=== PATIENT | male | born 1990 | race Two or more races ===

== ENCOUNTER → 2016-09-15 | Emergency (ER) | payer SELFPAY ==
[~2016-09-15] MED LIST: ACETAMINOPHEN 1000 MG/100 ML VIAL (NON FORMULARY) IVPB ONE; ACETAMINOPHEN INJECTION 100 ML IVPB ONE; FAMOTIDINE 20 MG/50 ML IVPB 50 ML IVPB ONE; ONDANSETRON 4 MG/2 ML VIAL IVPB ONE; ONDANSETRON 4 MG/2 ML VIAL ONE; PANTOPRAZOLE 40 MG TABLET (FP) PO ONE; SODIUM CHLORIDE 1,000 ML IV STA
[2016-09-15 18:04] VITALS: BP 110/56; PULSE 92; TEMP 98.3; BMI 23.5
--- NOTE | 2016-09-15 18:06 | PDOC ---
Rapid Medical Evaluation Chief Complaint: Chest Pain Time Seen by Provider: 09/15/16 17:58 Medical Evaluation: Allergies Allergy/AdvReac Type Severity Reaction Status Date / Time No Known Allergies Allergy Verified 09/14/16 15:28 09/15/16 18:03 RME Note: I have performed a brief, in-person evaluation of this patient . This patient presents with CC: abd pain x 1week; with SOB today; seen here yesterday for CP; had low K, and high glucose last week Pertinent PE findings are: lungs clear; VSS I have ordered: labs, EKG The patient will proceed to ED for further evaluation. JR
[2016-09-15 18:32] LABS: BASOPHIL 0.3 % (0-2.0); EOSINOPHIL 1.2 % (0-4.5); MCH 28.3 pg (25.7-33.7); MCHC 33.5 g/dl (32.0-35.9); MEAN CELL VOLUME 84.5 fl (80-96); MEAN PLT VOLUME 7.7 fl (7.5-11.1); NEUTROPHILS 64.9 % (42.8-82.8); PLATELET COUNT 354 K/MM3 (134-434); RDW 13.5 % (11.9-15.9); WHITE BLOOD COUNT 7.3 K/mm3 (4.0-10.0)
[2016-09-15 19:02] LABS: INR 1.13 (0.82-1.09); PROTHROMBIN TIME (PATIENT) 12.5 SEC (9.98-11.88)
[2016-09-15 19:04] LABS: ACTIVATED PTT 33.5 SECONDS (26.9-34.4)
[2016-09-15 19:11] LABS: ALBUMIN 4.3 g/dl (3.4-5.0); ANION GAP 9 (8-16); BILIRUBIN,TOTAL 0.7 mg/dL (0.2-1.0); CALCIUM 9.5 mg/dL (8.5-10.1); CO2 29 mmol/L (21-32); GLUCOSE,RANDOM 94 mg/dL (74-106); SGOT/AST 17 U/L (15-37); SGPT/ALT 28 U/L (12-78); TOT PROT 8.6 g/dl (6.4-8.2)
[2016-09-15 19:13] LABS: ALK PHOS 62 U/L (45-117); TROPONIN I < 0.02 ng/ml (0.00-0.05)
--- NOTE | 2016-09-15 19:39 | PDOC ---
History of Present Illness - History of Present Illness Initial Comments: 09/15/16 19:53 Patient is a 25 year old male with no significant medical hx who is presenting to the ED with one week of chest pain, nausea, abdominal cramping, weakness, and loss of appetite. The patient was seen in the ED yesterday for the same symptoms. He complains of intermittent chest pain that is described as a swelling that makes it difficult for him to breathe. The patient localizes his discomfort to his upper chest without any radiation up his neck or down his arms. Patient notes his chest pain is aggravated with strenuous activity. The patient also complains of high activity of his stomach, with pressure sensation and intermittent cramping. The patient reports associated nausea and loss of appetite but denies any vomiting or diarrhea. The patient also endorses some weight loss. Yesterday the patient received a chest x-ray (09/15/16 07) that read: Impression: No evidence of active pulmonary disease. (Reported By: Gelacio Bailey MD). Yesterday, the patient reported that he was seen at [facility] ER one week ago after drinking a 5 hour energy shot, Gatorade, and began hyperventilating. The patient was found to be hypokalemic and was treated with an IV and potassium. <Dana Oliveira - Last Filed: 09/15/16 23:52> - General History Source: Patient, Old Records Exam Limitations: No Limitations <Richard Catherine - Last Filed: 09/16/16 01:03> - General Chief Complaint: Pain Stated Complaint: Abd pain, chest tightness Time Seen by Provider: 09/15/16 17:58 Past History <Dana Oliveira - Last Filed: 09/15/16 23:52> - Past Medical History Other medical history: denies - Psycho/Social/Smoking Cessation Hx Anxiety: No Suicidal Ideation: No Smoking History: Former smoker Have you smoked in the past 12 months: No Number of Cigarettes Smoked Daily: 4 If you are a former smoker, when did you quit?: 08/2016 Information on smoking cessation initiated: No Hx Alcohol Use: No Drug/Substance Use Hx: No Substance Use Type: None <Richard Catherine - Last Filed: 09/16/16 01:03> - Past Medical History Allergies/Adverse Reactions: Allergies Allergy/AdvReac Type Severity Reaction Status Date / Time No Known Allergies Allergy Verified 09/15/16 18:04 Home Medications: Ambulatory Orders Ranitidine [Zantac -] 150 mg PO BID #60 tablet 09/14/16 Pantoprazole Sodium [Protonix] 40 mg PO DAILY #30 tablet. 09/15/16 Ranitidine HCl [Zantac] 150 mg PO BID PRN #20 tablet 09/15/16 Review of Systems - Review of Systems Comments:: 09/15/16 19:55 GENERAL/CONSTITUTIONAL: Loss of appetite, generalized weakness, weight loss. No fever or chills. HEAD, EYES, EARS, NOSE AND THROAT: No change in vision. No ear pain or discharge. No sore throat. CARDIOVASCULAR: Chest pain with difficulty breathing. RESPIRATORY: No cough, wheezing, or hemoptysis. GASTROINTESTINAL: Nausea, abdominal discomfort, cramping. No vomiting, diarrhea or constipation. GENITOURINARY: No dysuria, frequency, or change in urination. MUSCULOSKELETAL: No joint or muscle swelling or pain. No neck or back pain. SKIN: No rash NEUROLOGIC: No headache, vertigo, loss of consciousness, or change in strength/ sensation. <Dana Oliveira - Last Filed: 09/15/16 23:52> *Physical Exam - Vital Signs Last Vital Signs Temp Pulse Resp BP Pulse Ox 98.3 F 92 H 18 110/56 99 09/15/16 18:01 09/15/16 18:01 09/15/16 18:01 09/15/16 18:01 09/15/16 18:01 - Physical Exam Comments: 09/15/16 19:57 GENERAL: Awake, alert, and fully oriented, in no acute distress HEAD: No signs of trauma EYES: PERRLA, EOMI, sclera anicteric, conjunctiva clear ENT: Auricles normal inspection, hearing grossly normal, nares patent, oropharynx clear without exudates. Moist mucosa NECK: Normal ROM, supple, no lymphadenopathy, JVD, or masses LUNGS: Breath sounds equal, clear to auscultation bilaterally. No wheezes, and no crackles HEART: Regular rate and rhythm, normal S1 and S2, no murmurs, rubs or gallops ABDOMEN: Soft, tenderness to the epigastric, periumbilical, LLQ, and LUQ. Normoactive bowel sounds. No guarding, no rebound. No masses EXTREMITIES: Normal range of motion, no edema. No clubbing or cyanosis. No cords, erythema, or tenderness NEUROLOGICAL: Cranial nerves II through XII grossly intact. Normal speech, normal gait SKIN: Warm, Dry, normal turgor, no rashes or lesions noted. ENDOCRINE: No increased thirst. No abnormal weight change. HEMATOLOGIC/LYMPHATIC: No anemia, easy bleeding, or history of blood clots. ALLERGIC/IMMUNOLOGIC: No hives or skin allergy. <Dana Oliveira - Last Filed: 09/15/16 23:52> - Vital Signs Last Vital Signs Temp Pulse Resp BP Pulse Ox 98.3 F 92 H 18 110/56 99 09/15/16 18:01 09/15/16 18:01 09/15/16 18:01 09/15/16 18:01 09/15/16 18:01 <Richard Catherine - Last Filed: 09/16/16 01:03> Heart Score/ECG Review #1 ECG reviewed & interpreted by me at: 19:05 09/15/16 19:47 NSR 72, T wave flat III, concave upward ZOILA (J point) V2-V3, no STD, QTC 420 msec, normal axis. <Richard Catherine - Last Filed: 09/16/16 01:03> ED Treatment Course - LABORATORY CBC & Chemistry Diagram: 09/15/16 18:11 09/15/16 18:11 - ADDITIONAL ORDERS Additional order review: Laboratory Results 09/15/16 09/15/16 18:11 18:11 Sodium 135 L Potassium 3.8 Chloride 97 L Carbon Dioxide 29 Anion Gap 9 BUN 12 Creatinine 1.0 Creat Clearance w eGFR > 60 Random Glucose 94 Calcium 9.5 Total Bilirubin 0.7 AST 17 D ALT 28 Alkaline Phosphatase 62 Creatine Kinase 247 D CK-MB (CK-2) < 1.000 CK-MB (CK-2) Rel Index Cancelled Troponin I < 0.02 Total Protein 8.6 H Albumin 4.3 09/15/16 18:11 RBC 5.20 MCV 84.5 MCHC 33.5 RDW 13.5 MPV 7.7 Neutrophils % 64.9 Lymphocytes % 21.6 D Monocytes % 12.0 H Eosinophils % 1.2 D Basophils % 0.3 - RADIOLOGY Radiograph Interpretation: 09/15/16 23:[address] Impression: There is no CT evidence of pulmonary embolism. No acute pathology is identified. A solitary nonspecific 0.4 cm left lower lobe pulmonary nodule is noted. Reported By: Soren Toney MD Abdomen/Pelvis CT Impression: No CT findings of acute pathology are noted as discussed. A nonspecific 3 to 4 mm noncalcified nodule is seen within the posterior basal segment of the left lower lobe (as also visualized on chest CT performed on the same date). Reported By: Soren Toney MD <Dana Oliveira - Last Filed: 09/15/16 23:52> - LABORATORY CBC & Chemistry Diagram: 09/15/16 18:11 09/15/16 18:11 - ADDITIONAL ORDERS Additional order review: Laboratory Results 09/15/16 18:11 Sodium 135 L Potassium 3.8 Chloride 97 L Carbon Dioxide 29 Anion Gap 9 BUN 12 Creatinine 1.0 Creat Clearance w eGFR > 60 Random Glucose 94 Calcium 9.5 Total Bilirubin 0.7 AST 17 D ALT 28 Alkaline Phosphatase 62 Creatine Kinase 247 D CK-MB (CK-2) < 1.000 Troponin I < 0.02 Total Protein 8.6 H Albumin 4.3 09/15/16 18:11 RBC 5.20 MCV 84.5 MCHC 33.5 RDW 13.5 MPV 7.7 Neutrophils % 64.9 Lymphocytes % 21.6 D Monocytes % 12.0 H Eosinophils % 1.2 D Basophils % 0.3 - RADIOLOGY Radiology Studies Ordered: Category Date Time Status ABDOMEN & PELVIS CT WITH CONTR [CT] Stat CT Scan 09/15/16 18:55 Ordered CHEST CTA [CT] Stat CT Scan 09/15/16 18:55 Ordered <Richard Catherine - Last Filed: 09/16/16 01:03> Medical Decision Making - Medical Decision Making 09/15/16 19:38 A portion of this note was documented by scribe services under my direction. I have reviewed the details of the note, within reason, and agree with the documentation with the following case summary and management plan written by me. Patient treated in the ED. Nursing notes are reviewed and incorporated into the medical decision-making. Vital signs reviewed. Peripheral IV access obtained by the nurse, laboratory studies are drawn and sent, reviewed and interpreted by myself. Vital Signs Temp Pulse Resp BP Pulse Ox 98.3 F 92 H 18 110/56 99 09/15/16 18:01 09/15/16 18:01 09/15/16 18:01 09/15/16 18:01 09/15/16 18:01 25 year old male with no past medical history presents with persistent chest and abdominal pain for the last week. The patient reports that he typically feels well and usually does not go to doctors. He was recently seen a month of your emergency room as well as yesterday here in the emergency department for similar symptoms. He had a chest x-ray and blood work and EKG performed and was discharged. Today, he continues to complain of weight loss, general malaise, intermittent chest tightness not always exertional, left-sided abdominal discomfort. Denies fevers or chills. Denies shortness of breath. States that he' s been feeling potentially drained and unwell. The patient's symptoms are atypical. Unclear what the etiology is. The patient is having left sided abdominal pain as well. Given that this is unclear, will perform CT abdomen and pelvis. Will also obtain an ECG, trop, and a CTA to r/o PE. Labs. Reassess. 09/15/16 23:38 CBC, BMP 09/15/16 18:11 09/15/16 18:11 CMP Sodium 135 mmol/L (136-145) L 09/15/16 18:11 Potassium 3.8 mmol/L (3.5-5.1) 09/15/16 18:11 Chloride 97 mmol/L (98-107) L 09/15/16 18:11 Carbon Dioxide 29 mmol/L (21-32) 09/15/16 18:11 Anion Gap 9 (8-16) 09/15/16 18:11 BUN 12 mg/dL (7-18) 09/15/16 18:11 Creatinine 1.0 mg/dL (0.7-1.3) 09/15/16 18:11 Creat Clearance w eGFR > 60 (>60) 09/15/16 18:11 Random Glucose 94 mg/dL (74-106) 09/15/16 18:11 Calcium 9.5 mg/dL (8.5-10.1) 09/15/16 18:11 Total Bilirubin 0.7 mg/dL (0.2-1.0) 09/15/16 18:11 AST 17 U/L (15-37) D 09/15/16 18:11 ALT 28 U/L (12-78) 09/15/16 18:11 Alkaline Phosphatase 62 U/L (45-117) 09/15/16 18:11 Creatine Kinase 247 IU/L (39-308) D 09/15/16 18:11 CK-MB (CK-2) < 1.000 ng/ml (0.5-3.6) 09/15/16 18:11 CK-MB (CK-2) Rel Index Cancelled 09/15/16 18:11 Troponin I < 0.02 ng/ml (0.00-0.05) 09/15/16 18:11 Total Protein 8.6 g/dl (6.4-8.2) H 09/15/16 18:11 Albumin 4.3 g/dl (3.4-5.0) 09/15/16 18:11 Lipase 97 U/L (73-393) 09/15/16 19:46 TSH 0.73 uIU/ml (0.358-3.74) 09/15/16 19:46 Urine Test Results Urine Color Ltyellow 09/15/16 20:45 Urine Appearance Clear 09/15/16 20:45 Urine pH 6.0 (5.0-8.0) 09/15/16 20:45 Ur Specific [place] 1.018 (1.001-1.035) 09/15/16 20:45 Urine Protein Negative (NEGATIVE) 09/15/16 20:45 Urine Glucose (UA) Negative (NEGATIVE) 09/15/16 20:45 Urine Ketones 1+ (NEGATIVE) H 09/15/16 20:45 Urine Blood Negative (NEGATIVE) 09/15/16 20:45 Urine Nitrite Negative (NEGATIVE) 09/15/16 20:45 Urine Bilirubin Negative (NEGATIVE) 09/15/16 20:45 Ur Leukocyte Esterase Negative (NEGATIVE) 09/15/16 20:45 CT results reviewed. Left lung nodule noted. The patient was given Pepcid with significant improvement of the pain. I suspect that this may potentially be gastritis given that this goes towards his throat and he had upper abdominal pain. CT results given and patient was informed of the left lung nodule results. I instructed the small percentage of patients may potentially be tumors. He is advised to follow-up on repeat imaging in 3-6 months with his primary care doctor. I will give him a referral to a shake packer, gastroloenterologist any primary care doctor. Patient verbalizes understanding agrees with plan. I will write a prescription for Protonix and Zantac. I discussed the physical exam findings, ancillary test results and final diagnoses with the patient. I answered all of the patient's questions. The patient was satisfied with the care received and felt comfortable with the discharge plan and treatment plan. The patient will call their primary care physician within 24 hours to arrange follow-up and will return to the Emergency Department with any new, persistant or worsening symptoms. <Richard Catherine - Last Filed: 09/16/16 01:03> *DC/Admit/Observation/Transfer - Attestations Scribe Attestion: 09/15/16 19:58 Documentation prepared by Dana Oliveira, acting as medical microbiologist for Richard Catherine MD. <Dana Oliveira - Last Filed: 09/15/16 23:52> - Discharge Dispostion Admit: No <Richard Catherine - Last Filed: 09/16/16 01:03> Diagnosis at time of Disposition: Atypical chest pain Gastritis Qualifiers: Gastritis type: unspecified gastritis Chronicity: acute Gastritis bleeding: without bleeding Qualified Code(s): K29.00 - Acute gastritis without bleeding - Discharge Dispostion Disposition: HOME Condition at time of disposition: Stable - Prescriptions Prescriptions: Pantoprazole Sodium [Protonix] 40 mg PO DAILY #30 tablet. Ranitidine HCl [Zantac] 150 mg PO BID PRN #20 tablet PRN Reason: GERD - Referrals Referrals: Trenton Myers MD [Staff Physician] - Guanaco Austin MD [Staff Physician] - Michelle Garibay MD [Staff Physician] - Wilson Fitzpatrick MD [Staff Physician] - - Patient Instructions Printed Discharge Instructions: DI for Atypical Chest Pain, DI for Gastritis Additional Instructions: Please take 40 mg of Protonix daily. Take 150 mg of Zantac every 12 hours needed for additional relief. Drink plenty fluids and rest. Please make an appointment with a primary care physician, shake packer and a gastrologist. - Post Discharge Activity Work/School Note: Back to Work
[2016-09-15 21:04] LABS: URINE APPEARANCE CLEAR; URINE BILIRUBIN NEGATIVE (NEGATIVE); URINE BLOOD NEGATIVE (NEGATIVE); URINE COLOR LTYELLOW; URINE GLUCOSE (UA) NEGATIVE (NEGATIVE); URINE KETONE 1+ (NEGATIVE); URINE LEUK ESTERASE NEGATIVE (NEGATIVE); URINE NITRITE NEGATIVE (NEGATIVE); URINE PROTEIN NEGATIVE (NEGATIVE); URINE UROBILINOGEN NEGATIVE E.U./dl (0.2-1.0)
[2016-09-15 21:33] LABS: URINE MARIJUANA THC NEGATIVE ng/ml (CUTOFF=50)
--- NOTE | 2016-09-16 09:41 | EKG ---
Test Reason : Blood Pressure : / mmHG Vent. Rate : 072 BPM Atrial Rate : 072 BPM P-R Int : 172 ms QRS Dur : 084 ms QT Int : 384 ms P-R-T Axes : 067 066 040 degrees QTc Int : 420 ms NORMAL SINUS RHYTHM NORMAL ECG WHEN COMPARED WITH ECG OF 14-SEP-2016 15:15, NONSPECIFIC T WAVE ABNORMALITY HAS REPLACED INVERTED T WAVES IN INFERIOR LEADS Confirmed by KERWIN HILL MD ([id number]) on 09/16/2016 9:40:22 AM Referred By: Confirmed By:KERWIN HILL MD
== END | disposition home or self-care (01) ==
LOC: JER 17:57
PROC: 3E033GC Introduction of Other Therapeutic Substance into Peripheral Vein, Percutaneous Approach (ICD-10-PCS; principal; 2016-09-15)
PROC: 3E033NZ Introduction of Analgesics, Hypnotics, Sedatives into Peripheral Vein, Percutaneous Approach (ICD-10-PCS; 2016-09-15)
PROC: 3E033GC Introduction of Other Therapeutic Substance into Peripheral Vein, Percutaneous Approach (ICD-10-PCS; 2016-09-15)
DX: K29.00 Acute gastritis without bleeding (principal); R91.1 Solitary pulmonary nodule
CPT/HCPCS: 36415; 71275-TC; 74177-TC; 80053; 80307; 81003; 82550; 82553; 83690; 84443; 84484; 85025; 85610; 85730; 93005; 93010; 99281-25; Q9967

== ENCOUNTER 2016-10-09 13:48 | Emergency (ER) | payer SELFPAY ==
[2016-10-09 13:58] VITALS: TEMP 98.3; BMI 23.5
--- NOTE | 2016-10-09 16:34 | PDOC ---
History of Present Illness - General Chief Complaint: Chest Pain Stated Complaint: CHEST PAIN Time Seen by Provider: 10/09/16 16:16 History Source: Patient Exam Limitations: No Limitations - History of Present Illness Initial Comments: 10/09/16 16:28 Agent came to emergency department with complaints of palpitations, mild dizziness that started this morning. had same similar episode one month ago and was taken by ambulance to [facility]. After thorough evaluation patient he was given some potassium replacement as he had been ill with diarrhea previously to that admission, and instructed to avoid caffeinated in stimulating beverages which she had been taking in large amounts. Patient since that time has had a good diet, no alcohol or drugs , has stopped smoking cigarettes. has suffered intermittently for mild anxiety and has not had follow-up appointment with any psychiatry for same. is pending [employer] insurance before to make appointments for thorough physical exam or psychiatric evaluation. 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 Denies history of psychiatric disease, no one in family has history of psychiatric disease, denies homicidal suicidal ideation 10/09/16 17:11 Severity: mild Past History - Travel Traveled outside of the country in the last 30 days: No Close contact w/someone who was outside of country & ill: No - Past Medical History Allergies/Adverse Reactions: Allergies Allergy/AdvReac Type Severity Reaction Status Date / Time No Known Allergies Allergy Verified 10/09/16 13:58 Home Medications: Ambulatory Orders Ranitidine [Zantac -] 150 mg PO BID #60 tablet 09/14/16 Pantoprazole Sodium [Protonix] 40 mg PO DAILY #30 tablet. 09/15/16 Other medical history: NONE - Psycho/Social/Smoking Cessation Hx Anxiety: No Suicidal Ideation: No Smoking History: Never smoked Have you smoked in the past 12 months: No Number of Cigarettes Smoked Daily: 4 If you are a former smoker, when did you quit?: 08/2016 Hx Alcohol Use: No Drug/Substance Use Hx: No Substance Use Type: None Review of Systems - Review of Systems Able to Perform ROS?: Yes Is the patient limited Tunisian proficient: Yes Constitutional: Yes: Symptoms Reported, See HPI, Loss of Appetite, Malaise. No : Fever HEENTM: No: Symptoms Reported Respiratory: No: Symptoms reported Cardiac (ROS): Yes: Symptoms Reported ABD/GI: Yes: Symptoms Reported, Poor Appetite. No: Diarrhea, Vomiting, Abdominal cramping : Yes: See HPI. No: Symptoms Reported, Burning, Dysuria Integumentary: Yes: See HPI. No: Symptoms Reported Neurological: Yes: See HPI. No: Symptoms reported, Headache Psychiatric: Yes: Anxiety All Other Systems: Reviewed and Negative *Physical Exam - Vital Signs Last Vital Signs Temp Pulse Resp BP Pulse Ox 98.3 F 100 H 20 127/81 99 10/09/16 13:55 10/09/16 13:55 10/09/16 13:55 10/09/16 13:55 10/09/16 13:55 - Physical Exam General Appearance: Yes: Nourished, Appropriately Dressed HEENT: positive: CHELO, Normal ENT Inspection, TMs Normal, Pharynx Normal. negative: Rhinorrhea Neck: positive: Supple. negative: Lymphadenopathy (R), Lymphadenopathy (L) Respiratory/Chest: positive: Lungs Clear, Normal Breath Sounds Cardiovascular: positive: Regular Rhythm, Regular Rate Musculoskeletal: positive: Normal Inspection, CVA Tenderness Extremity: positive: Normal Capillary Refill, Normal Inspection, Normal Range of Motion, Tender, Pelvis Stable Integumentary: positive: Dry, Warm, Pale Neurologic: positive: director of category management II-XII NML intact, Fully Oriented, Alert, Normal Mood/ Affect, Normal Response, Motor Strength 5/5 Heart Score/ECG Review - ECG Intrepretation Rhythm: Regular Rhythm - [place]: Normal - ST and T Non Specific ST-T Wave changes: No - ECG Impressions Normal ECG: Yes Non-specific ST Elevation: No Ischemic Changes: No ED Treatment Course - LABORATORY CBC & Chemistry Diagram: 10/09/16 16:51 10/09/16 16:51 Medical Decision Making - Medical Decision Making 10/09/16 17:14 Mild anxiety, will check electrolytes, urinalysis and urine tox. 10/09/16 18:06 Laboratory works within normal limits, tox screen negative, EKG negative. Will recommend follow-up when possible with psychiatry for evaluation of persistent anxiety mild, no medications to be this prescribed at this point *DC/Admit/Observation/Transfer Diagnosis at time of Disposition: Anxiety attack - Discharge Dispostion Disposition: HOME Condition at time of disposition: Stable Admit: No - Referrals Referrals: Jamar Parks NP [Nurse Practitioner] - - Patient Instructions Printed Discharge Instructions: DI for Anxiety -- Adult Additional Instructions: Rest, avoid stressful environment situations No alcohol, caffeinated beverages or products For thorough medical evaluation when possible Recommend psychiatric/psychological evaluation for reevaluation of recurrent anxiety episodes as soon as possible May return to emergency department for worsened symptoms, fevers, palpitations or chest pain - Post Discharge Activity Work/School Note: Back to Work
[2016-10-09 17:03] LABS: BASOPHIL 0.4 % (0-2.0); EOSINOPHIL 0.4 % (0-4.5); MCH 27.8 pg (25.7-33.7); MCHC 32.9 g/dl (32.0-35.9); MEAN CELL VOLUME 84.5 fl (80-96); MEAN PLT VOLUME 7.7 fl (7.5-11.1); NEUTROPHILS 68.7 % (42.8-82.8); PLATELET COUNT 272 K/MM3 (134-434); RDW 13.2 % (11.9-15.9); WHITE BLOOD COUNT 6.3 K/mm3 (4.0-10.0)
[2016-10-09 17:07] LABS: URINE APPEARANCE CLEAR; URINE BILIRUBIN NEGATIVE (NEGATIVE); URINE BLOOD NEGATIVE (NEGATIVE); URINE COLOR COLORLESS; URINE GLUCOSE (UA) NEGATIVE (NEGATIVE); URINE KETONE NEGATIVE (NEGATIVE); URINE LEUK ESTERASE NEGATIVE (NEGATIVE); URINE NITRITE NEGATIVE (NEGATIVE); URINE PROTEIN NEGATIVE (NEGATIVE); URINE UROBILINOGEN NEGATIVE E.U./dl (0.2-1.0)
[2016-10-09 17:17] LABS: URINE MARIJUANA THC NEGATIVE ng/ml (CUTOFF=50)
[2016-10-09 17:30] LABS: ALBUMIN 4.1 g/dl (3.4-5.0); ALK PHOS 51 U/L (45-117); ANION GAP 8 (8-16); BILIRUBIN,TOTAL 0.9 mg/dL (0.2-1.0); CALCIUM 9.7 mg/dL (8.5-10.1); CO2 31 mmol/L (21-32); COCKROFT - GAULT 106.78; GLUCOSE,RANDOM 86 mg/dL (74-106); SGOT/AST 12 U/L (15-37); SGPT/ALT 24 U/L (12-78); TOT PROT 8.1 g/dl (6.4-8.2)
[2016-10-09 18:22] VITALS: BP 118/64; PULSE 70
--- NOTE | 2016-10-10 11:26 | EKG ---
Test Reason : Blood Pressure : / mmHG Vent. Rate : 099 BPM Atrial Rate : 099 BPM P-R Int : 162 ms QRS Dur : 078 ms QT Int : 340 ms P-R-T Axes : 077 070 044 degrees QTc Int : 436 ms SINUS RHYTHM WITH OCCASIONAL PREMATURE VENTRICULAR COMPLEXES NONSPECIFIC T WAVE ABNORMALITY ABNORMAL ECG WHEN COMPARED WITH ECG OF 15-SEP-2016 19:02, PREMATURE VENTRICULAR COMPLEXES ARE NOW PRESENT Confirmed by ADRIAN PARK MD ([id number]) on 10/10/2016 11:26:26 AM Referred By: Confirmed By:ADRIAN PARK MD
== END 2016-10-09 18:22 | disposition home or self-care (01) ==
LOC: JER 13:48
DX: F41.0 Panic disorder [episodic paroxysmal anxiety] (principal)
CPT/HCPCS: 36415; 80053; 80307; 81003; 85025; 93005; 93010; 99284-25

== ENCOUNTER 2016-11-07 06:38 | Inpatient (IN) | payer SELFPAY ==
--- NOTE | 2016-11-07 07:41 | PDOC ---
History of Present Illness - General Chief Complaint: Back Pain Stated Complaint: BACK PAIN Time Seen by Provider: 11/07/16 07:13 History Source: Patient Exam Limitations: No Limitations - History of Present Illness Initial Comments: 25 y/o M w/no sig PMH presents with w/ c/o mid-lower back pain. Pt states he has bad back pain for the last 1 week which has significantly worsened over the last 2 days. Pain is located under ribs on back. Pain yesterday was 7/10 at its worst and today is at a 6/10. Pain does not radiate elsewhere. Pt had chills yesterday but denies fevers. Pain is relieved with showering and aggravated with standing. Pt did not take any medication to help alleviate pain. Pt has also complained of frothy urine over last 2 weeks but no dysuria or blood in urine. Pt was recently seen 1 week ago at [facility] for chest pain and was noted to have protein in urine. He was recently at a clinic to check for STDs and states STD panel was negative but was given 4 days of metronidazole. Pt was last sexually active in August w/o use of protection. Denies any penile discharge, itchiness, or lesions. Pt also states he has had some loss of appetite over the last week and has mainly been eating fruits only. Pt also c/o back pain with deep inspiration but denies any chest pain. He has also had clear/white sputum production over the last week. Denies any cough or SOB or dyspnea with exertion. Pt also c/o of mild LUQ abd pain. Pt denies SORTO, light-headedness, dizziness, visual changes, CP, SOB, diarrhea, constipation, blood in stool, swelling, fevers, parasthesias, difficulty ambulating. Pt denies recent travel history or sick contacts. 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 Denies alcohol and drug use. Quit smoking in August and smoked approximately 5 cigarettes per day for 1 year. Pt has no PCP. Has not seen regional director of admissions in past. Past History - Travel Traveled outside of the country in the last 30 days: No Close contact w/someone who was outside of country & ill: No - Past Medical History Allergies/Adverse Reactions: Allergies Allergy/AdvReac Type Severity Reaction Status Date / Time No Known Allergies Allergy Verified 11/07/16 07:13 Home Medications: Ambulatory Orders Ranitidine [Zantac -] 150 mg PO BID #60 tablet 09/14/16 Pantoprazole Sodium [Protonix] 40 mg PO DAILY #30 tablet. 09/15/16 - Psycho/Social/Smoking Cessation Hx Anxiety: No Suicidal Ideation: No Smoking History: Former smoker (Quit August 2016) Have you smoked in the past 12 months: Yes Number of Cigarettes Smoked Daily: 4 If you are a former smoker, when did you quit?: 08/2016 Information on smoking cessation initiated: No Hx Alcohol Use: No Drug/Substance Use Hx: No Substance Use Type: None Review of Systems - Review of Systems Able to Perform ROS?: Yes Comments:: CONSTITUTIONAL: +chills, loss of appetite Absent: fever, diaphoresis, generalized weakness, malaise HEENT: Absent: rhinorrhea, nasal congestion, throat pain, ear pain, eye pain, visual Changes CARDIOVASCULAR: Absent: chest pain, syncope, lightheadedness, peripheral edema RESPIRATORY: +pain with deep inspiration in L back Absent: cough, shortness of breath, dyspnea with exertion, orthopnea, hemoptysis GASTROINTESTINAL: +LUQ mild abd pain, +back pain Absent:nausea, vomiting, diarrhea, constipation, melena, hematochezia GENITOURINARY: +frothy urine Absent: dysuria, frequency, urgency, hesitancy, hematuria, flank pain, genital pain MUSCULOSKELETAL: Absent: myalgia, arthralgia, joint swelling ENDOCRINE:Absent: unexplained weight gain, unexplained weight loss, heat intolerance, cold intolerance NEUROLOGIC: Absent: headache, focal weakness or paresthesias, dizziness, unsteady gait, seizure, mental status changes, bladder or bowel incontinence PSYCHIATRIC: Absent: anxiety, depression, suicidal or homicidal ideation, hallucinations Is the patient limited Grenadian proficient: No *Physical Exam - Vital Signs Last Vital Signs Temp Pulse Resp BP Pulse Ox 97.5 F L 73 19 117/68 98 11/07/16 07:10 11/07/16 07:10 11/07/16 07:10 11/07/16 07:10 11/07/16 07:10 - Physical Exam Comments: GENERAL: Well developed, well nourished. Awake and alert. No acute distress. HEENT: Normocephalic, atraumatic. PERRLA, EOMI. No conjunctival pallor. Sclera are non-icteric. Moist mucous membranes. NECK: Supple. Full ROM. CARDIOVASCULAR: Regular rate and rhythm. No murmurs, rubs, or gallops. PULMONARY: No evidence of respiratory distress. Lungs clear to auscultation bilaterally. No wheezing, rales or rhonchi. ABDOMINAL: +LUQ mild tenderness to palpation Soft. Non-distended. No rebound or guarding. No organomegaly. Normoactive bowel sounds. MUSCULOSKELETAL: +b/l CVA tenderness Normal range of motion at all joints. No bony deformities or tenderness. EXTREMITIES: No cyanosis. No edema. No calf tenderness. SKIN: Warm and dry. No rashes. No jaundice. NEUROLOGICAL: Alert, awake, appropriate. Cranial nerves 2-12 grossly intact. No motor deficits in the in face, upper extremities and lower extremities. Normal speech. PSYCHIATRIC: Cooperative. Good eye contact. Appropriate mood and affect. ED Treatment Course - LABORATORY CBC & Chemistry Diagram: 11/07/16 08:00 11/09/16 07:30 Medical Decision Making - Medical Decision Making 11/07/16 07:43 Pt with B/L CVA tenderness and history of protein in urine and frothy urine will order UA, CBC, CMP, renal U/S With history of pleuritic pain will order CXR 11/07/16 10:21 CXR shows no acute pathology. Renal U/S shows morphologically normal kidneys. BUN/Cr elevated at 24/2.9 - likely intrarenal pathology. UA shows 1+protein and 1+blood 11/07/16 11:[address] Ramirez. Admission accepted. Consults for Dr. Freedman and Dr. Funes placed as per Dr. Ramirez. UA also shows WBC of 6 and abx to be started as per Dr. Ramirez. UCx will be ordered prior to giving abx. Ceftriaxone ordered. *DC/Admit/Observation/Transfer Diagnosis at time of Disposition: MAURI (acute kidney injury) - Discharge Dispostion Condition at time of disposition: Fair
[2016-11-07 08:29] LABS: URINE APPEARANCE CLEAR; URINE BILIRUBIN NEGATIVE (NEGATIVE); URINE COLOR STRAW; URINE GLUCOSE (UA) NEGATIVE (NEGATIVE); URINE KETONE NEGATIVE (NEGATIVE); URINE LEUK ESTERASE NEGATIVE (NEGATIVE); URINE NITRITE NEGATIVE (NEGATIVE); URINE UROBILINOGEN NEGATIVE E.U./dl (0.2-1.0)
[2016-11-07 08:33] LABS: URINE BLOOD 1+ (NEGATIVE); URINE PROTEIN 1+ (NEGATIVE)
[2016-11-07 08:39] LABS: BASOPHIL 0.4 % (0-2.0); EOSINOPHIL 1.3 % (0-4.5); MCH 28.5 pg (25.7-33.7); MCHC 33.4 g/dl (32.0-35.9); MEAN CELL VOLUME 85.6 fl (80-96); MEAN PLT VOLUME 7.8 fl (7.5-11.1); NEUTROPHILS 71.3 % (42.8-82.8); PLATELET COUNT 251 K/MM3 (134-434); RDW 13.2 % (11.9-15.9); WHITE BLOOD COUNT 7.6 K/mm3 (4.0-10.0)
[2016-11-07 08:46] LABS: CALCIUM 9.7 mg/dL (8.5-10.1); COCKROFT - GAULT 40.5; CREATININE 2.9 mg/dL (0.7-1.3); TOT PROT 7.8 g/dl (6.4-8.2)
[2016-11-07 09:26] LABS: URINE RBC 3 /hpf (0-3); URINE WBC 6 /hpf (3-5)
--- NOTE | 2016-11-07 10:23 | PDOC ---
Attending Attestation - Resident Resident Name: Robert Weiss - ED Attending Attestation I have performed the following: I have examined & evaluated the patient, The case was reviewed & discussed with the resident, I agree w/resident's findings & plan, Exceptions are as noted - HPI HPI: 11/07/16 10:21 25-year-old male with 2 days of worsening bilateral flank pain, evaluated at outside hospital and was noted to have some proteinuria, presents here for persistent symptoms. - Physicial Exam PE: 11/07/16 10:22 as noted, lungs are clear b/l cvat - Medical Decision Making 11/07/16 10:22 Patient seen and evaluated with the resident. I agree with the overall evaluation, assessment, and management with the following summary of visit: Healthy 25-year-old male presents with bilateral flank pain for 2 days, workup reveals creatinine of 2.9, which is new for patient. Electrolytes are within normal limits, likely primary renal etiology. Bilateral renal ultrasound shows no anatomical abnormalities. Has no PMD, will admit for workup.
[2016-11-07] MEDS ORDERED: CEFTRIAXONE 1 GM in DEXTROSE 5%-WATER - 50 ML IVPB ONE (11:57)
[2016-11-07] MEDS ORDERED: CEFTRIAXONE 50 ML ONE (13:10)
[2016-11-07 13:47] LABS: URINE CREATININE 96.7 mg/dL (20-370)
--- NOTE | 2016-11-07 13:59 | CONSULT ---
Consult Consult Specialty:: Nephrology Reason for Consultation:: MAURI - History of Present Illness Chief Complaint: back pain History of Present Illness: Pt is a 25 year old male with no significant pmhx who presents to the ER complaining of mid lower back pain. He says that the began a few days ago and became worse. He was found to have elevated creatinine on bloodwork and I was called to evaluate him. He denies nsaid use. He denies history of CKD. He denies family history of renal disease. He does complain of foamy urine. He says he went to a clinic and was given 4 doses of metronidizole. He is sexually active. He says he went to [facility] the day the back pain began where he was given toradol. They did not comment on his renal function. He denies fevers or chills. He denies constipation or diarrhea. He denies drug use. - History Source History Provided By: Patient - Alcohol/Substance Use Hx Alcohol Use: No - Smoking History Smoking history: Former smoker (Quit August 2016) Have you smoked in the past 12 months: Yes Aproximately how many cigarettes per day: 4 If you are a former smoker, when did you quit?: 08/2016 Home Medications - Allergies Allergies/Adverse Reactions: Allergies Allergy/AdvReac Type Severity Reaction Status Date / Time No Known Allergies Allergy Verified 11/07/16 07:13 - Home Medications Home Medications: Ambulatory Orders Ranitidine [Zantac -] 150 mg PO BID #60 tablet 09/14/16 Pantoprazole Sodium [Protonix] 40 mg PO DAILY #30 tablet. 09/15/16 Family Disease History - Family Disease History Family History: Denies Review of Systems - Review of Systems Constitutional: reports: No Symptoms Eyes: reports: No Symptoms HENT: reports: No Symptoms Neck: reports: No Symptoms Cardiovascular: reports: No Symptoms Respiratory: reports: No Symptoms Gastrointestinal: reports: No Symptoms Genitourinary: reports: No Symptoms Musculoskeletal: reports: Back Pain Integumentary: reports: No Symptoms Neurological: reports: No Symptoms Endocrine: reports: No Symptoms Psychiatric: reports: No Symptoms Physical Exam Vital Signs: Vital Signs Temperature 97.5 F L 11/07/16 07:10 Pulse Rate 73 11/07/16 07:10 Respiratory Rate 19 11/07/16 07:10 Blood Pressure 117/68 11/07/16 07:10 O2 Sat by Pulse Oximetry (%) 98 11/07/16 07:10 Constitutional: Yes: Anxious Eyes: Yes: Conjunctiva Clear HENT: Yes: Atraumatic Neck: Yes: Supple Cardiovascular: Yes: S1, S2 Respiratory: Yes: CTA Bilaterally Gastrointestinal: Yes: Normal Bowel Sounds, Soft Renal/: Yes: WNL Musculoskeletal: Yes: Other (back pain mid lower) Edema: No Integumentary: Yes: Tattoos Neurological: Yes: Oriented Psychiatric: Yes: Oriented Labs: Laboratory Tests 09/14/16 09/14/16 09/15/16 15:54 16:56 18:11 WBC Hgb Plt Count Sodium Potassium Chloride Carbon Dioxide Anion Gap BUN Creatinine 0.9 1.0 Creat Clearance w eGFR AST ALT Alkaline Phosphatase Albumin Urine Color Urine Appearance Urine pH Ur Specific [place] Urine Protein Negative Urine Glucose (UA) Urine Ketones Urine Blood Negative Urine Nitrite Urine Bilirubin Urine Urobilinogen Ur Leukocyte Esterase 09/15/16 10/09/16 10/09/16 20:45 16:51 16:51 WBC Hgb Plt Count Sodium Potassium Chloride Carbon Dioxide Anion Gap BUN Creatinine 1.0 Creat Clearance w eGFR AST ALT Alkaline Phosphatase Albumin Urine Color Urine Appearance Urine pH Ur Specific [place] Urine Protein Negative Negative Urine Glucose (UA) Urine Ketones Urine Blood Negative Negative Urine Nitrite Urine Bilirubin Urine Urobilinogen Ur Leukocyte Esterase 11/07/16 11/07/16 11/07/16 08:00 08:00 08:00 WBC 7.6 Hgb 14.4 Plt Count 251 Sodium 141 Potassium 4.2 Chloride 100 Carbon Dioxide 30 Anion Gap 11 BUN 24 H D Creatinine 2.9 H D Creat Clearance w eGFR 26.23 AST 18 D ALT 20 Alkaline Phosphatase 48 Albumin 4.0 Urine Color Straw Urine Appearance Clear Urine pH 6.0 Ur Specific [place] Pending Urine Protein 1+ H Urine Glucose (UA) Negative Urine Ketones Negative Urine Blood 1+ H Urine Nitrite Negative Urine Bilirubin Negative Urine Urobilinogen Negative Ur Leukocyte Esterase Negative Imaging - Results Chest X-ray: Report Reviewed Ultrasound: Report Reviewed (trace free fluid within morrisons pouch near right kidney) Problem List - Problems (1) Back pain Code(s): M54.9 - DORSALGIA, UNSPECIFIED (2) MAURI (acute kidney injury) Code(s): N17.9 - ACUTE KIDNEY FAILURE, UNSPECIFIED Assessment/Plan Impression 1. MAURI 2. back pain 3. UTI Plan - FENa is 0.6 - will start fluids - send urine cultures - ID eval - will send renal workup - pt will also need outpt follow up - renal ultrasound reviewed - will comment more on etiology of MAURI after more data is gathetered however based on FENa it appears to be pre-renal in part - check HIV - pt did not want a genital exam Dr Freedman
[2016-11-07] MEDS: SODIUM CHLORIDE 1,000 ML IV SCH (14:22)
[2016-11-07 17:02] VITALS: BMI 22.4
--- NOTE | 2016-11-07 17:37 | HP ---
Admitting History and Physical - Primary Care Physician PCP: Tana Ramirez - Admission History of Present Illness: Healthy 25-year-old male presents with bilateral flank pain for 2 weeks, bubbles in urine, workup reveals creatinine of 2.9, hematuria and proeinuris Has no PMD, will admit for workup. - Smoking History Smoking history: Former smoker Have you smoked in the past 12 months: Yes Aproximately how many cigarettes per day: 4 If you are a former smoker, when did you quit?: 08/2016 - Alcohol/Substance Use Hx Alcohol Use: No Home Medications - Allergies Allergies/Adverse Reactions: Allergies Allergy/AdvReac Type Severity Reaction Status Date / Time No Known Allergies Allergy Verified 11/07/16 07:13 - Home Medications Home Medications: Ambulatory Orders Ranitidine [Zantac -] 150 mg PO BID #60 tablet 09/14/16 Pantoprazole Sodium [Protonix] 40 mg PO DAILY #30 tablet. 09/15/16 Physical Examination Vital Signs: Vital Signs Temperature 98.2 F 11/07/16 16:15 Pulse Rate 63 11/07/16 16:15 Respiratory Rate 20 11/07/16 16:15 Blood Pressure 118/78 11/07/16 16:15 O2 Sat by Pulse Oximetry (%) 99 11/07/16 16:15 Constitutional: Yes: No Distress HENT: Yes: Atraumatic Neck: Yes: Supple Cardiovascular: Yes: Regular Rate and Rhythm Respiratory: Yes: CTA Bilaterally Gastrointestinal: Yes: Normal Bowel Sounds Renal/: Yes: CVA Tenderness - Left, CVA Tenderness - Right Extremities: Yes: WNL Neurological: Yes: Alert, Oriented Imaging - Results X-ray: Report Reviewed Ultrasound: Report Reviewed Problem List - Problems (1) MAURI (acute kidney injury) Assessment/Plan: fu labs renal consult Code(s): N17.9 - ACUTE KIDNEY FAILURE, UNSPECIFIED (2) Back pain Code(s): M54.9 - DORSALGIA, UNSPECIFIED (3) Anxiety attack Code(s): F41.0 - PANIC DISORDER WITHOUT AGORAPHOBIA (4) Proteinuria Code(s): R80.9 - PROTEINURIA, UNSPECIFIED (5) UTI (urinary tract infection) Assessment/Plan: iv abx ucx id consult Code(s): N39.0 - URINARY TRACT INFECTION, SITE NOT SPECIFIED Assessment/Plan Laboratory Tests 11/07/16 11/07/16 11/07/16 08:00 08:00 08:00 WBC 7.6 RBC 5.03 Hgb 14.4 Hct 43.1 MCV 85.6 MCHC 33.4 RDW 13.2 Plt Count 251 MPV 7.8 Neutrophils % 71.3 Lymphocytes % 12.4 D Monocytes % 14.6 H Eosinophils % 1.3 D Basophils % 0.4 Sodium 141 Potassium 4.2 Chloride 100 Carbon Dioxide 30 Anion Gap 11 BUN 24 H D Creatinine 2.9 H D Creat Clearance w eGFR 26.23 Random Glucose 90 Calcium 9.7 Total Bilirubin 1.0 AST 18 D ALT 20 Alkaline Phosphatase 48 Total Protein 7.8 Albumin 4.0 Urine Color Straw Urine Appearance Clear Urine pH 6.0 Ur Specific [place] <= 1.005 Urine Protein 1+ H Urine Glucose (UA) Negative Urine Ketones Negative Urine Blood 1+ H Urine Nitrite Negative Urine Bilirubin Negative Urine Urobilinogen Negative Ur Leukocyte Esterase Negative Urine RBC 3 Urine WBC 6 Ur Random Sodium Ur Random Potassium Ur Random Chloride Urine Creatinine 11/07/16 13:30 WBC RBC Hgb Hct MCV MCHC RDW Plt Count MPV Neutrophils % Lymphocytes % Monocytes % Eosinophils % Basophils % Sodium Potassium Chloride Carbon Dioxide Anion Gap BUN Creatinine Creat Clearance w eGFR Random Glucose Calcium Total Bilirubin AST ALT Alkaline Phosphatase Total Protein Albumin Urine Color Urine Appearance Urine pH Ur Specific [place] Urine Protein Urine Glucose (UA) Urine Ketones Urine Blood Urine Nitrite Urine Bilirubin Urine Urobilinogen Ur Leukocyte Esterase Urine RBC Urine WBC Ur Random Sodium 28 Ur Random Potassium 12.7 Ur Random Chloride 20 Urine Creatinine 96.7 Active Medications Generic Name Dose Route Start Last Admin Trade Name Karen PRN Reason Stop Dose Admin Sodium Chloride 1,000 mls @ 75 mls/hr 11/07/16 14:15 11/07/16 14:22 Normal Saline - IV 75 mls/hr ASDIR [facility] Administration 1.uti iv abx send cxs 2. iv hydration renal consultelevated cr
[2016-11-07] MEDS ORDERED: ACETAMINOPHEN 325 MG TABLET (FP) PO PRN (17:46)
--- NOTE | 2016-11-07 18:12 | CONSULT ---
Consult Consult Specialty:: infectious diseases Reason for Consultation:: uti r/o any infection pyelo - History of Present Illness Chief Complaint: back pain History of Present Illness: 25 year old male with no significant pmhx who presents to the ER complaining of mid lower back pain. He says that the began a few days ago and became worse. He was found to have elevated creatinine patient has no other issues but talking to him it feels as if he is not completely with it patient denies any sexual activity denies any penile discharge or any other issues - History Source History Provided By: Patient Limitations to Obtaining History: No Limitations - Alcohol/Substance Use Hx Alcohol Use: No - Smoking History Smoking history: Former smoker Have you smoked in the past 12 months: Yes Aproximately how many cigarettes per day: 4 If you are a former smoker, when did you quit?: 08/2016 Home Medications - Allergies Allergies/Adverse Reactions: Allergies Allergy/AdvReac Type Severity Reaction Status Date / Time No Known Allergies Allergy Verified 11/07/16 07:13 - Home Medications Home Medications: Ambulatory Orders Ranitidine [Zantac -] 150 mg PO BID #60 tablet 09/14/16 Pantoprazole Sodium [Protonix] 40 mg PO DAILY #30 tablet. 09/15/16 Review of Systems - Review of Systems Constitutional: reports: No Symptoms Eyes: reports: No Symptoms HENT: reports: No Symptoms Neck: reports: No Symptoms Cardiovascular: reports: No Symptoms Respiratory: reports: No Symptoms Gastrointestinal: reports: No Symptoms Musculoskeletal: reports: Back Pain Neurological: reports: No Symptoms Endocrine: reports: No Symptoms Psychiatric: reports: No Symptoms Physical Exam Vital Signs: Vital Signs Temperature 98.2 F 11/07/16 16:15 Pulse Rate 63 11/07/16 16:15 Respiratory Rate 20 11/07/16 16:15 Blood Pressure 118/78 11/07/16 16:15 O2 Sat by Pulse Oximetry (%) 99 11/07/16 16:15 Constitutional: Yes: Calm, Mild Distress Eyes: Yes: Conjunctiva Clear HENT: Yes: Atraumatic Neck: Yes: Supple, Trachea Midline Cardiovascular: Yes: Regular Rate and Rhythm Respiratory: Yes: Regular, CTA Bilaterally Gastrointestinal: Yes: Normal Bowel Sounds, Soft Musculoskeletal: Yes: WNL Extremities: Yes: WNL Neurological: Yes: Alert, Oriented Psychiatric: Yes: Alert, Oriented Imaging - Results Chest X-ray: Report Reviewed, Image Reviewed Ultrasound: Report Reviewed, Image Reviewed Assessment/Plan i have evaluated the patient at this moment i do not see any evidence of infection looking at her labs he might have renal abn or uti 1. MAURI 2. back pain 3. UTI plan will await nephrology to see the patient will not start on abx await for cx to be back
[2016-11-07 20:01] LABS: URINE APPEARANCE CLEAR; URINE BILIRUBIN NEGATIVE (NEGATIVE); URINE COLOR STRAW; URINE GLUCOSE (UA) NEGATIVE (NEGATIVE); URINE KETONE NEGATIVE (NEGATIVE); URINE LEUK ESTERASE NEGATIVE (NEGATIVE); URINE NITRITE NEGATIVE (NEGATIVE); URINE UROBILINOGEN NEGATIVE E.U./dl (0.2-1.0)
[2016-11-07 20:03] LABS: URINE BLOOD 1+ (NEGATIVE); URINE PROTEIN 1+ (NEGATIVE)
[2016-11-07 21:27] LABS: URINE CREATININE 91.3 mg/dL (20-370)
[2016-11-08] MEDS: SODIUM CHLORIDE 1,000 ML IV SCH ×2 (08:43→14:15)
[2016-11-08 09:19] LABS: ALBUMIN 3.6 g/dl (3.4-5.0); BILIRUBIN,TOTAL 1.1 mg/dL (0.2-1.0); CALCIUM 8.9 mg/dL (8.5-10.1); COCKROFT - GAULT 46.28; CREATININE 2.2 mg/dL (0.7-1.3); TOT PROT 7.1 g/dl (6.4-8.2)
[2016-11-08] MEDS: CEFTRIAXONE 50 ML IVPB SCH (10:25)
--- NOTE | 2016-11-08 12:49 | PN ---
Progress Note, Physician History of Present Illness: says he is feeling better no new issues back pain better - Current Medication List Current Medications: Active Medications Acetaminophen (Tylenol -) 650 mg PO Q6H PRN PRN Reason: FEVER OR PAIN Sodium Chloride (Normal Saline -) 1,000 mls @ 75 mls/hr IV ASDIR [facility] Last Admin: 11/08/16 08:43 Dose: 75 mls/hr Ceftriaxone Sodium (Rocephin 1gm Ivpb (Pre-Docked)) 50 mls @ 100 mls/hr IVPB DAILY [facility] Last Admin: 11/08/16 10:25 Dose: 100 mls/hr - Objective Vital Signs: Vital Signs Temperature 99.5 F 11/08/16 10:09 Pulse Rate 84 11/08/16 10:09 Respiratory Rate 20 11/08/16 10:09 Blood Pressure 131/59 11/08/16 10:09 O2 Sat by Pulse Oximetry (%) 99 11/07/16 16:15 Constitutional: Yes: No Distress, Calm Cardiovascular: Yes: Regular Rate and Rhythm Respiratory: Yes: Regular, CTA Bilaterally Gastrointestinal: Yes: Normal Bowel Sounds, Soft Musculoskeletal: Yes: WNL Extremities: Yes: WNL Neurological: Yes: Alert, Oriented Psychiatric: Yes: Alert, Oriented Labs: CBC, BMP 11/08/16 08:05 Assessment/Plan 1. MAURI 2. back pain 3. UTI ultrasound of kidneys seen and reop plan nephrology note noted await for all reports
[2016-11-08 15:20] LABS: URINE WBC 2 (3-5)
[2016-11-08 15:21] LABS: URINE BACTERIA RARE /hpf (NEGATIVE); URINE MUCUS RARE; URINE RBC 1 /hpf (0-3)
--- NOTE | 2016-11-08 15:57 | PN ---
Progress Note, Physician History of Present Illness: Pt seen and examined at bedside. He is awake and alert. He denies shortness of breath. He has back pain but feels that it is improved. - Current Medication List Current Medications: Active Medications Acetaminophen (Tylenol -) 650 mg PO Q6H PRN PRN Reason: FEVER OR PAIN Sodium Chloride (Normal Saline -) 1,000 mls @ 75 mls/hr IV ASDIR [facility] Last Admin: 11/08/16 14:15 Dose: Not Given Ceftriaxone Sodium (Rocephin 1gm Ivpb (Pre-Docked)) 50 mls @ 100 mls/hr IVPB DAILY [facility] Last Admin: 11/08/16 10:25 Dose: 100 mls/hr - Objective Vital Signs: Vital Signs Temperature 98.5 F 11/08/16 14:32 Pulse Rate 58 L 11/08/16 14:32 Respiratory Rate 18 11/08/16 14:32 Blood Pressure 118/71 11/08/16 14:32 O2 Sat by Pulse Oximetry (%) 99 11/07/16 16:15 Constitutional: Yes: Calm Eyes: Yes: Conjunctiva Clear HENT: Yes: Atraumatic Neck: Yes: Supple Cardiovascular: Yes: S1, S2 Respiratory: Yes: CTA Bilaterally Gastrointestinal: Yes: Soft Genitourinary: Yes: WNL Musculoskeletal: Yes: WNL Edema: No Integumentary: Yes: Tattoos Neurological: Yes: Oriented Psychiatric: Yes: Oriented Labs: CBC, BMP 11/08/16 08:05 Problem List - Problems (1) Back pain Code(s): M54.9 - DORSALGIA, UNSPECIFIED (2) MAURI (acute kidney injury) Code(s): N17.9 - ACUTE KIDNEY FAILURE, UNSPECIFIED Assessment/Plan Current Medications Generic Name Dose Route Start Last Admin Trade Name Freq PRN Reason Stop Dose Admin Acetaminophen 650 mg 11/07/16 17:46 Tylenol - PO Q6H PRN FEVER OR PAIN Sodium Chloride 1,000 mls @ 75 mls/hr 11/07/16 14:15 11/08/16 14:15 Normal Saline - IV Not Given ASDIR MONSERRAT Ceftriaxone Sodium 50 mls @ 100 mls/hr 11/08/16 10:00 11/08/16 10:25 Rocephin 1gm Ivpb (Pre-Docked) IVPB 100 mls/hr DAILY [facility] Administration Laboratory Tests 11/07/16 11/07/16 11/07/16 08:00 19:30 20:20 Creatinine 2.9 H D Urine Protein 1+ H Urine Blood 1+ H LEEANN Screen Pending c-ANCA Proteinase 3 (PR3) p-ANCA Atypical p-ANCA Myeloperoxidase Ab Double Strand DNA Ab Complement C3 Complement C4 Hepatitis A Ab Total Hep Bs Antigen Hep Bs Antibody Hep B Core Total Ab Hepatitis C Antibody 11/07/16 11/08/16 11/08/16 20:20 08:05 13:10 Creatinine 2.2 H D Urine Protein Urine Blood LEEANN Screen c-ANCA Pending Proteinase 3 (PR3) Pending p-ANCA Pending Atypical p-ANCA Pending Myeloperoxidase Ab Pending Double Strand DNA Ab Pending Complement C3 Complement C4 Hepatitis A Ab Total Pending Hep Bs Antigen Pending Hep Bs Antibody Pending Hep B Core Total Ab Pending Hepatitis C Antibody Pending 11/08/16 14:30 Creatinine Urine Protein Urine Blood LEEANN Screen c-ANCA Proteinase 3 (PR3) p-ANCA Atypical p-ANCA Myeloperoxidase Ab Double Strand DNA Ab Complement C3 Pending Complement C4 Pending Hepatitis A Ab Total Hep Bs Antigen Hep Bs Antibody Hep B Core Total Ab Hepatitis C Antibody Impression 1. MAURI 2. back pain 3. UTI Plan - will change fluids to 1/2 ns - urine cultures is pending - renal workup is in progress - pt will also need outpt follow up - check HIV if he agrees - pt did not want a genital exam Dr Freedman
[2016-11-08] MEDS: SODIUM CHLORIDE 0.45% 1,000 ML IV SCH (16:59)
--- NOTE | 2016-11-08 18:44 | PN ---
Progress Note, Physician - Current Medication List Current Medications: Active Medications Acetaminophen (Tylenol -) 650 mg PO Q6H PRN PRN Reason: FEVER OR PAIN Ceftriaxone Sodium (Rocephin 1gm Ivpb (Pre-Docked)) 50 mls @ 100 mls/hr IVPB DAILY [facility] Last Admin: 11/08/16 10:25 Dose: 100 mls/hr Sodium Chloride (1/2 Normal Saline) 1,000 mls @ 100 mls/hr IV ASDIR [facility] Last Admin: 11/08/16 16:59 Dose: 100 mls/hr - Objective Vital Signs: Vital Signs Temperature 98.5 F 11/08/16 14:32 Pulse Rate 58 L 11/08/16 14:32 Respiratory Rate 18 11/08/16 14:32 Blood Pressure 118/71 11/08/16 14:32 O2 Sat by Pulse Oximetry (%) 99 11/07/16 16:15 Constitutional: Yes: No Distress HENT: Yes: Atraumatic Neck: Yes: Supple Cardiovascular: Yes: Regular Rate and Rhythm Respiratory: Yes: CTA Bilaterally Gastrointestinal: Yes: Normal Bowel Sounds Extremities: Yes: WNL Labs: CBC, BMP 11/08/16 08:05 Problem List - Problems (1) MAURI (acute kidney injury) Assessment/Plan: fu labs renal consult Code(s): N17.9 - ACUTE KIDNEY FAILURE, UNSPECIFIED (2) Back pain Code(s): M54.9 - DORSALGIA, UNSPECIFIED (3) Anxiety attack Code(s): F41.0 - PANIC DISORDER WITHOUT AGORAPHOBIA (4) Proteinuria Code(s): R80.9 - PROTEINURIA, UNSPECIFIED (5) UTI (urinary tract infection) Assessment/Plan: iv abx ucx id consult Code(s): N39.0 - URINARY TRACT INFECTION, SITE NOT SPECIFIED
[2016-11-09] MEDS: SODIUM CHLORIDE 0.45% 1,000 ML IV SCH ×2 (05:35→16:30)
[2016-11-09 06:06] LABS: HEP B SURFACE AB Reactive (.)
[2016-11-09 09:10] LABS: ALBUMIN 3.6 g/dl (3.4-5.0); BILIRUBIN,TOTAL 0.9 mg/dL (0.2-1.0); COCKROFT - GAULT 56.57; CREATININE 1.8 mg/dL (0.7-1.3); TOT PROT 7.3 g/dl (6.4-8.2)
[2016-11-09] MEDS: CEFTRIAXONE 50 ML IVPB SCH (10:01)
--- NOTE | 2016-11-09 12:39 | PN ---
Progress Note, Physician History of Present Illness: improving no new issues - Current Medication List Current Medications: Active Medications Acetaminophen (Tylenol -) 650 mg PO Q6H PRN PRN Reason: FEVER OR PAIN Ceftriaxone Sodium (Rocephin 1gm Ivpb (Pre-Docked)) 50 mls @ 100 mls/hr IVPB DAILY [facility] Last Admin: 11/09/16 10:01 Dose: 100 mls/hr Sodium Chloride (1/2 Normal Saline) 1,000 mls @ 100 mls/hr IV ASDIR [facility] Last Admin: 11/09/16 05:35 Dose: 100 mls/hr - Objective Vital Signs: Vital Signs Temperature 98.3 F 11/09/16 10:24 Pulse Rate 58 L 11/09/16 10:24 Respiratory Rate 20 11/09/16 10:24 Blood Pressure 120/68 11/09/16 10:24 O2 Sat by Pulse Oximetry (%) 95 11/09/16 09:00 Constitutional: Yes: No Distress, Calm Cardiovascular: Yes: Regular Rate and Rhythm Respiratory: Yes: Regular, CTA Bilaterally Gastrointestinal: Yes: Normal Bowel Sounds, Soft Musculoskeletal: Yes: WNL Extremities: Yes: WNL Psychiatric: Yes: Alert, Oriented Labs: CBC, BMP 11/09/16 07:30 Assessment/Plan 1. MAURI 2. back pain 3. UTI plan all cx negative so far no abx cr improving
--- NOTE | 2016-11-09 13:15 | PN ---
Progress Note, Physician History of Present Illness: Pt seen and examined at bedside. He feels that his back pain is improving. - Current Medication List Current Medications: Active Medications Acetaminophen (Tylenol -) 650 mg PO Q6H PRN PRN Reason: FEVER OR PAIN Ceftriaxone Sodium (Rocephin 1gm Ivpb (Pre-Docked)) 50 mls @ 100 mls/hr IVPB DAILY [facility] Last Admin: 11/09/16 10:01 Dose: 100 mls/hr Sodium Chloride (1/2 Normal Saline) 1,000 mls @ 100 mls/hr IV ASDIR [facility] Last Admin: 11/09/16 05:35 Dose: 100 mls/hr - Objective Vital Signs: Vital Signs Temperature 98.3 F 11/09/16 10:24 Pulse Rate 58 L 11/09/16 10:24 Respiratory Rate 20 11/09/16 10:24 Blood Pressure 120/68 11/09/16 10:24 O2 Sat by Pulse Oximetry (%) 95 11/09/16 09:00 Constitutional: Yes: Calm Eyes: Yes: Conjunctiva Clear HENT: Yes: Atraumatic Cardiovascular: Yes: S1, S2 Respiratory: Yes: CTA Bilaterally Gastrointestinal: Yes: Soft Genitourinary: No: CVA Tenderness - Left, CVA Tenderness - Right Musculoskeletal: Yes: WNL Edema: No Neurological: Yes: Oriented Psychiatric: Yes: Oriented Labs: CBC, BMP 11/09/16 07:30 Problem List - Problems (1) Back pain Code(s): M54.9 - DORSALGIA, UNSPECIFIED (2) MAURI (acute kidney injury) Code(s): N17.9 - ACUTE KIDNEY FAILURE, UNSPECIFIED Assessment/Plan Current Medications Generic Name Dose Route Start Last Admin Trade Name Freq PRN Reason Stop Dose Admin Acetaminophen 650 mg 11/07/16 17:46 Tylenol - PO Q6H PRN FEVER OR PAIN Ceftriaxone Sodium 50 mls @ 100 mls/hr 11/08/16 10:00 11/09/16 10:01 Rocephin 1gm Ivpb (Pre-Docked) IVPB 100 mls/hr DAILY [facility] Administration Sodium Chloride 1,000 mls @ 100 mls/hr 11/08/16 16:00 11/09/16 05:35 1/2 Normal Saline IV 100 mls/hr ASDIR [facility] Administration Laboratory Tests 0511/07/16 11/08/16 20:20 20:20 14:30 Prot Electrophoresis Serum Total Protein Albumin Globulin Albumin/Globulin Ratio Tggzo-3-Dfajojefi Llhnt-7-Rwtbkdtoo Beta Globulins Gamma Globulins Angiotensin Convert Enz Pending RJ M-Jase LEEANN Screen Pending c-ANCA Pending Proteinase 3 (PR3) Pending p-ANCA Pending Atypical p-ANCA Pending Myeloperoxidase Ab Pending Double Strand DNA Ab Pending Complement C3 Pending Complement C4 Pending 11/09/16 07:30 Prot Electrophoresis Pending Serum Total Protein Pending Albumin Pending Globulin Pending Albumin/Globulin Ratio Pending [id number] Pending [id number]-2-Yipdoslmc Pending Beta Globulins Pending Gamma Globulins Pending Angiotensin Convert Enz RJ M-Jase Pending LEEANN Screen c-ANCA Proteinase 3 (PR3) p-ANCA Atypical p-ANCA Myeloperoxidase Ab Double Strand DNA Ab Complement C3 Complement C4 Impression 1. MAURI 2. back pain 3. UTI Plan - renal workup in progress - pt complains discomfort from tip of penis but did not want exam - urine cultures are negative - cpk not done, will order - pt will also need outpt follow up - check HIV if he agrees Dr Freedman
--- NOTE | 2016-11-09 17:22 | DS ---
Physical Examination Vital Signs: Vital Signs Temperature 99.1 F 11/09/16 14:47 Pulse Rate 76 11/09/16 14:47 Respiratory Rate 20 11/09/16 14:47 Blood Pressure 123/62 11/09/16 14:47 O2 Sat by Pulse Oximetry (%) 95 11/09/16 09:00 Constitutional: Yes: No Distress HENT: Yes: Atraumatic Neck: Yes: Supple Cardiovascular: Yes: Regular Rate and Rhythm Respiratory: Yes: CTA Bilaterally Gastrointestinal: Yes: Normal Bowel Sounds Extremities: Yes: WNL Neurological: Yes: Alert, Oriented Labs: CBC, BMP 11/09/16 07:30 Discharge Summary Reason For Visit: ACUTE RENAL INSUFFICIENCY Current Active Problems MAURI (acute kidney injury) (Acute) Back pain (Acute) Proteinuria (Acute) UTI (urinary tract infection) (Acute) Condition: Fair - Instructions Diet, Activity, Other Instructions: pt should go to [facility] should follow up dr freedman Referrals: Shaye Freedman MD [Staff Physician] - - Home Medications Comprehensive Discharge Medication List: Ambulatory Orders Ranitidine [Zantac -] 150 mg PO BID #60 tablet 09/14/16 Pantoprazole Sodium [Protonix] 40 mg PO DAILY #30 tablet. 09/15/16 d/w id cxs negative dc abx, can be dc pts creatinine improving can see dr freedman as out pt also fu at [facility]
--- NOTE | 2016-11-09 18:06 | PN ---
Progress Note, Physician - Current Medication List Current Medications: Active Medications Acetaminophen (Tylenol -) 650 mg PO Q6H PRN PRN Reason: FEVER OR PAIN Sodium Chloride (1/2 Normal Saline) 1,000 mls @ 100 mls/hr IV ASDIR [facility] Last Admin: 11/09/16 16:30 Dose: 100 mls/hr - Objective Vital Signs: Vital Signs Temperature 99.1 F 11/09/16 14:47 Pulse Rate 76 11/09/16 14:47 Respiratory Rate 20 11/09/16 14:47 Blood Pressure 123/62 11/09/16 14:47 O2 Sat by Pulse Oximetry (%) 95 11/09/16 09:00 Constitutional: Yes: No Distress HENT: Yes: Atraumatic Neck: Yes: Supple Cardiovascular: Yes: Regular Rate and Rhythm Respiratory: Yes: CTA Bilaterally Gastrointestinal: Yes: Normal Bowel Sounds Extremities: Yes: WNL Neurological: Yes: Alert, Oriented Labs: CBC, BMP 11/09/16 07:30 Problem List - Problems (1) MAURI (acute kidney injury) Assessment/Plan: fu labs renal consult Code(s): N17.9 - ACUTE KIDNEY FAILURE, UNSPECIFIED (2) Back pain Code(s): M54.9 - DORSALGIA, UNSPECIFIED (3) Anxiety attack Code(s): F41.0 - PANIC DISORDER WITHOUT AGORAPHOBIA (4) Proteinuria Code(s): R80.9 - PROTEINURIA, UNSPECIFIED (5) UTI (urinary tract infection) Assessment/Plan: iv abx ucx id consult Code(s): N39.0 - URINARY TRACT INFECTION, SITE NOT SPECIFIED Assessment/Plan 1.uti iv abx send cxs 2.Elevated CR on iv hydration renal follow up some labs pending
[2016-11-10] MEDS: SODIUM CHLORIDE 0.45% 1,000 ML IV SCH ×2 (00:46→10:18)
[2016-11-10 07:40] LABS: COCKROFT - GAULT 63.64; CREATININE 1.6 mg/dL (0.7-1.3)
[2016-11-10 08:07] LABS: COMPLEMENT C3 117 mg/dL (82-167); COMPLEMENT C4 25 mg/dL (14-44)
--- NOTE | 2016-11-10 14:24 | PN ---
Progress Note, Physician History of Present Illness: Pt seen and examined at bedside. He is awake and alert. - Current Medication List Current Medications: Active Medications Acetaminophen (Tylenol -) 650 mg PO Q6H PRN PRN Reason: FEVER OR PAIN Sodium Chloride (1/2 Normal Saline) 1,000 mls @ 100 mls/hr IV ASDIR [facility] Last Admin: 11/10/16 10:18 Dose: 100 mls/hr - Objective Vital Signs: Vital Signs Temperature 98.2 F 11/10/16 07:09 Pulse Rate 98 H 11/10/16 07:09 Respiratory Rate 18 11/10/16 07:09 Blood Pressure 112/71 11/10/16 07:09 O2 Sat by Pulse Oximetry (%) 100 11/10/16 09:00 Constitutional: Yes: Anxious Eyes: Yes: Conjunctiva Clear HENT: Yes: Atraumatic Neck: Yes: Supple Cardiovascular: Yes: S1, S2 Respiratory: Yes: CTA Bilaterally Gastrointestinal: Yes: Soft Genitourinary: Yes: WNL Musculoskeletal: Yes: WNL Edema: No Integumentary: Yes: Tattoos Neurological: Yes: Oriented Psychiatric: Yes: Oriented Labs: CBC, BMP 11/10/16 06:20 Problem List - Problems (1) Back pain Code(s): M54.9 - DORSALGIA, UNSPECIFIED (2) MAURI (acute kidney injury) Code(s): N17.9 - ACUTE KIDNEY FAILURE, UNSPECIFIED Assessment/Plan Current Medications Generic Name Dose Route Start Last Admin Trade Name Freq PRN Reason Stop Dose Admin Acetaminophen 650 mg 11/07/16 17:46 Tylenol - PO Q6H PRN FEVER OR PAIN Sodium Chloride 1,000 mls @ 100 mls/hr 11/08/16 16:00 11/10/16 10:18 1/2 Normal Saline IV 100 mls/hr ASDIR [facility] Administration Laboratory Tests 11/07/16 11/07/16 11/08/16 20:20 20:20 14:30 Creatinine Globulin Albumin/Globulin Ratio Angiotensin Convert Enz Pending Urine Eosinophils RJ M-Jase LEEANN Screen Negative c-ANCA Pending Proteinase 3 (PR3) Pending p-ANCA Pending Atypical p-ANCA Pending Myeloperoxidase Ab Pending Double Strand DNA Ab <1 Complement C3 117 Complement C4 25 Hep Bs Antigen Negative Hep Bs Antibody Reactive Hep B Core Total Ab Negative 11/08/16 11/09/16 11/10/16 16:40 07:30 06:20 Creatinine 1.6 H Globulin Pending Albumin/Globulin Ratio Pending Angiotensin Convert Enz Urine Eosinophils Pending RJ M-Jase Pending LEEANN Screen c-ANCA Proteinase 3 (PR3) p-ANCA Atypical p-ANCA Myeloperoxidase Ab Double Strand DNA Ab Complement C3 Complement C4 Hep Bs Antigen Hep Bs Antibody Hep B Core Total Ab Laboratory Tests 11/09/16 11/10/16 14:02 06:20 Creatine Kinase 117 102 Impression 1. MAURI 2. back pain 3. UTI Plan - renal function is improving - serologic workup negative so far - will need outpt follow up - ID follow up - urine cultures are negative - pt will also need outpt follow up - check HIV if he agrees Dr Freedman
[2016-11-10 17:00] LABS: URINE APPEARANCE CLEAR; URINE BILIRUBIN NEGATIVE (NEGATIVE); URINE COLOR COLORLESS; URINE GLUCOSE (UA) NEGATIVE (NEGATIVE); URINE KETONE NEGATIVE (NEGATIVE); URINE LEUK ESTERASE NEGATIVE (NEGATIVE); URINE NITRITE NEGATIVE (NEGATIVE); URINE PROTEIN NEGATIVE (NEGATIVE); URINE UROBILINOGEN NEGATIVE E.U./dl (0.2-1.0)
--- NOTE | 2016-11-10 18:01 | PN ---
Progress Note, Physician History of Present Illness: patient was c/o of penile pain last night now says he is feeling better complete exam of done no penile lesions seen - Current Medication List Current Medications: Active Medications Acetaminophen (Tylenol -) 650 mg PO Q6H PRN PRN Reason: FEVER OR PAIN Sodium Chloride (1/2 Normal Saline) 1,000 mls @ 100 mls/hr IV ASDIR [facility] Last Admin: 11/10/16 10:18 Dose: 100 mls/hr - Objective Vital Signs: Vital Signs Temperature 98.5 F 11/10/16 15:19 Pulse Rate 62 11/10/16 15:19 Respiratory Rate 20 11/10/16 15:19 Blood Pressure 126/78 11/10/16 15:19 O2 Sat by Pulse Oximetry (%) 100 11/10/16 09:00 Constitutional: Yes: No Distress, Calm Cardiovascular: Yes: Regular Rate and Rhythm Respiratory: Yes: Regular, CTA Bilaterally Gastrointestinal: Yes: Normal Bowel Sounds, Soft Musculoskeletal: Yes: WNL Extremities: Yes: WNL Neurological: Yes: Alert, Oriented Psychiatric: Yes: Alert, Oriented Labs: CBC, BMP 11/10/16 06:20 Assessment/Plan 1. MAURI 2. back pain 3. UTI re cx of urine send urine showing some blood plan no abx should consider urology to see the patient
[2016-11-10 18:11] LABS: URINE BLOOD 1+ (NEGATIVE)
--- NOTE | 2016-11-10 19:36 | PN ---
Progress Note, Physician - Current Medication List Current Medications: Active Medications Acetaminophen (Tylenol -) 650 mg PO Q6H PRN PRN Reason: FEVER OR PAIN Sodium Chloride (1/2 Normal Saline) 1,000 mls @ 100 mls/hr IV ASDIR [facility] Last Admin: 11/10/16 10:18 Dose: 100 mls/hr - Objective Vital Signs: Vital Signs Temperature 99.2 F 11/10/16 18:15 Pulse Rate 59 L 11/10/16 18:15 Respiratory Rate 20 11/10/16 18:15 Blood Pressure 113/68 11/10/16 18:15 O2 Sat by Pulse Oximetry (%) 100 11/10/16 09:00 Constitutional: Yes: No Distress HENT: Yes: Atraumatic Neck: Yes: Supple Cardiovascular: Yes: Regular Rate and Rhythm Respiratory: Yes: CTA Bilaterally Gastrointestinal: Yes: Normal Bowel Sounds Extremities: Yes: WNL Neurological: Yes: Alert, Oriented Labs: CBC, BMP 11/10/16 06:20 Problem List - Problems (1) MAURI (acute kidney injury) Assessment/Plan: fu labs CR IMPROVING Code(s): N17.9 - ACUTE KIDNEY FAILURE, UNSPECIFIED (2) Back pain Code(s): M54.9 - DORSALGIA, UNSPECIFIED (3) Anxiety attack Code(s): F41.0 - PANIC DISORDER WITHOUT AGORAPHOBIA (4) Proteinuria Assessment/Plan: IMPROVED Code(s): R80.9 - PROTEINURIA, UNSPECIFIED (5) UTI (urinary tract infection) Assessment/Plan: iv abx ucx...P id consult Code(s): N39.0 - URINARY TRACT INFECTION, SITE NOT SPECIFIED Assessment/Plan 1.uti iv abx cxs...IMP 2.Elevated CR on iv hydration renal follow up some labs pending
[2016-11-11 00:07] LABS: C-ANCA <1:20 titer (Neg:<1:20); MYELOPEROXIDASE ANTIBODY <9.0 U/mL (0.0-9.0); P-ANCA <1:20 titer (Neg:<1:20); PROTEINASE-3 ANTIBODY <3.5 U/mL (0.0-3.5)
[2016-11-11 00:07] LABS: A/G RATIO 0.9 (0.7-1.7); ALBUMIN 3.6 g/dL (2.9-4.4); GLOBULIN, TOTAL 3.8 g/dL (2.2-3.9); M-SPIKE Not Observed g/dL (Not Observed); TOTAL PROTEIN 7.4 g/dL (6.0-8.5)
[2016-11-11 00:07] LABS: ANGIOTENSIN CONVERTING ENZYME 37 U/L (14-82)
[2016-11-11 09:20] LABS: CALCIUM 9.4 mg/dL (8.5-10.1); COCKROFT - GAULT 67.88; CREATININE 1.5 mg/dL (0.7-1.3)
--- NOTE | 2016-11-11 10:44 | PN ---
Progress Note, Physician History of Present Illness: stable says his heart was racing urine cx no growth - Current Medication List Current Medications: Active Medications Acetaminophen (Tylenol -) 650 mg PO Q6H PRN PRN Reason: FEVER OR PAIN Sodium Chloride (1/2 Normal Saline) 1,000 mls @ 100 mls/hr IV [facility] Last Admin: 11/10/16 10:18 Dose: 100 mls/hr - Objective Vital Signs: Vital Signs Temperature 98.3 F 11/11/16 06:00 Pulse Rate 60 11/11/16 06:00 Respiratory Rate 16 11/11/16 06:00 Blood Pressure 117/76 11/11/16 06:00 O2 Sat by Pulse Oximetry (%) 100 11/10/16 22:00 Constitutional: Yes: Calm Neck: Yes: Supple Cardiovascular: Yes: Regular Rate and Rhythm Respiratory: Yes: Regular, CTA Bilaterally Gastrointestinal: Yes: Normal Bowel Sounds, Soft Musculoskeletal: Yes: WNL Extremities: Yes: WNL Neurological: Yes: Alert, Oriented Psychiatric: Yes: Alert, Oriented Labs: CBC, BMP 11/11/16 07:30 Assessment/Plan 1. MAURI 2. back pain 3. UTI urine cx negative plan no abx rest ct as per primary
--- NOTE | 2016-11-11 14:52 | PN ---
Progress Note, Physician History of Present Illness: Pt seen and examined at bedside. He has no complaints today. He denies dysuria or hematuria. - Current Medication List Current Medications: Active Medications Acetaminophen (Tylenol -) 650 mg PO Q6H PRN PRN Reason: FEVER OR PAIN Sodium Chloride (1/2 Normal Saline) 1,000 mls @ 100 mls/hr IV ASDIR [facility] Last Admin: 11/10/16 10:18 Dose: 100 mls/hr - Objective Vital Signs: Vital Signs Temperature 98.3 F 11/11/16 11:00 Pulse Rate 80 11/11/16 11:00 Respiratory Rate 20 11/11/16 11:00 Blood Pressure 121/70 11/11/16 11:00 O2 Sat by Pulse Oximetry (%) 98 11/11/16 11:00 Constitutional: Yes: Calm Eyes: Yes: Conjunctiva Clear HENT: Yes: Atraumatic Neck: Yes: Supple Cardiovascular: Yes: S1, S2 Respiratory: Yes: CTA Bilaterally Gastrointestinal: Yes: Soft Genitourinary: Yes: WNL Musculoskeletal: Yes: WNL Edema: No Neurological: Yes: Oriented Psychiatric: Yes: Oriented Labs: CBC, BMP 11/11/16 07:30 Problem List - Problems (1) Back pain Code(s): M54.9 - DORSALGIA, UNSPECIFIED (2) MAURI (acute kidney injury) Code(s): N17.9 - ACUTE KIDNEY FAILURE, UNSPECIFIED Assessment/Plan Current Medications Generic Name Dose Route Start Last Admin Trade Name Freq PRN Reason Stop Dose Admin Acetaminophen 650 mg 11/07/16 17:46 Tylenol - PO Q6H PRN FEVER OR PAIN Sodium Chloride 1,000 mls @ 100 mls/hr 11/08/16 16:00 11/10/16 10:18 1/2 Normal Saline IV 100 mls/hr ASDIR [facility] Administration Laboratory Tests 11/07/16 11/07/16 11/08/16 20:20 20:20 13:10 Serum Total Protein Total Protein Albumin Globulin Albumin/Globulin Ratio Zcvbn-4-Rczhuxgjf Iewbq-4-Nwmewwkud Beta Globulins Gamma Globulins Urine Color Urine Appearance Urine pH Ur Specific [place] Urine Protein Urine Glucose (UA) Urine Ketones Urine Blood Urine Nitrite Urine Bilirubin Urine Urobilinogen Ur Leukocyte Esterase Urine Eosinophils RJ M-Jase LEEANN Screen Negative c-ANCA <1:20 Proteinase 3 (PR3) <3.5 p-ANCA <1:20 Atypical p-ANCA <1:20 Myeloperoxidase Ab <9.0 Double Strand DNA Ab <1 Complement C3 Complement C4 Hep Bs Antigen Negative Hep B Core Total Ab Negative Hepatitis C Antibody Pending 11/08/16 11/08/16 11/09/16 14:30 16:40 07:30 Serum Total Protein Total Protein 7.3 Albumin 3.6 Globulin Albumin/Globulin Ratio Xqoaz-4-Rttvbqkiy Bxlka-1-Ceevbepne Beta Globulins Gamma Globulins Urine Color Urine Appearance Urine pH Ur Specific [place] Urine Protein Urine Glucose (UA) Urine Ketones Urine Blood Urine Nitrite Urine Bilirubin Urine Urobilinogen Ur Leukocyte Esterase Urine Eosinophils Pending RJ M-Jase LEEANN Screen c-ANCA Proteinase 3 (PR3) p-ANCA Atypical p-ANCA Myeloperoxidase Ab Double Strand DNA Ab Complement C3 117 Complement C4 25 Hep Bs Antigen Hep B Core Total Ab Hepatitis C Antibody 11/09/16 11/10/16 07:30 16:00 Serum Total Protein 7.4 Total Protein Albumin 3.6 Globulin 3.8 Albumin/Globulin Ratio 0.9 Aksxp-0-Yxmccikfy 0.3 Xrwcj-6-Oofsnezzf 1.0 Beta Globulins 1.1 Gamma Globulins 1.5 Urine Color Colorless Urine Appearance Clear Urine pH 6.0 Ur Specific [place] <= 1.005 Urine Protein Negative Urine Glucose (UA) Negative Urine Ketones Negative Urine Blood 1+ H Urine Nitrite Negative Urine Bilirubin Negative Urine Urobilinogen Negative Ur Leukocyte Esterase Negative Urine Eosinophils RJ M-Jase Not observed LEEANN Screen c-ANCA Proteinase 3 (PR3) p-ANCA Atypical p-ANCA Myeloperoxidase Ab Double Strand DNA Ab Complement C3 Complement C4 Hep Bs Antigen Hep B Core Total Ab Hepatitis C Antibody Impression 1. MAURI 2. back pain 3. UTI Plan - renal workup is negative so far - renal function improved - will see pt in office next week - urine cultures are negative - check HIV if he agrees Dr Freedman
[2016-11-11] MEDS: SODIUM CHLORIDE 0.45% 1,000 ML IV SCH (16:39)
--- NOTE | 2016-11-11 19:02 | PN ---
Progress Note, Physician - Current Medication List Current Medications: Active Medications Acetaminophen (Tylenol -) 650 mg PO Q6H PRN PRN Reason: FEVER OR PAIN Sodium Chloride (1/2 Normal Saline) 1,000 mls @ 100 mls/hr IV ASDIR [facility] Last Admin: 11/11/16 16:39 Dose: 100 mls/hr - Objective Vital Signs: Vital Signs Temperature 99.1 F 11/11/16 14:46 Pulse Rate 95 H 11/11/16 18:58 Respiratory Rate 20 11/11/16 18:58 Blood Pressure 116/84 11/11/16 18:58 O2 Sat by Pulse Oximetry (%) 98 11/11/16 11:00 Constitutional: Yes: No Distress HENT: Yes: Atraumatic Neck: Yes: Supple Cardiovascular: Yes: Regular Rate and Rhythm Respiratory: Yes: CTA Bilaterally Gastrointestinal: Yes: Normal Bowel Sounds Extremities: Yes: WNL Neurological: Yes: Alert, Oriented Labs: CBC, BMP 11/11/16 07:30 Problem List - Problems (1) MAURI (acute kidney injury) Assessment/Plan: fu labs CR IMPROVING Code(s): N17.9 - ACUTE KIDNEY FAILURE, UNSPECIFIED (2) Back pain Code(s): M54.9 - DORSALGIA, UNSPECIFIED (3) Anxiety attack Code(s): F41.0 - PANIC DISORDER WITHOUT AGORAPHOBIA (4) Proteinuria Code(s): R80.9 - PROTEINURIA, UNSPECIFIED (5) UTI (urinary tract infection) Code(s): N39.0 - URINARY TRACT INFECTION, SITE NOT SPECIFIED Assessment/Plan 1.uti iv abx cxs...IMP 2.Elevated CR on iv hydration renal follow up some labs pending
--- NOTE | 2016-11-11 19:33 | HOSP ---
Subjective - Review of Symptoms Events since last encounter: patient reported to have rapid heart rate high 90's Subjective: patient states that he lied down and felt a lump in his throat, palpitations, weakness and tingling in legs as well as a lot of anxiety. He states that he wants to go home. He reports that similar sensations have happened to him before. He denies h/a, loc, chest pain, diaphoresis, sob, n/v, abd pain, flank pain, fever or chills. He denies heat or cold intolerance or recent weight change. denies family history of thyroid or heart problems. General: No: Chills, Malaise HEENT: No: Head Aches, Visual Changes Pulmonary: No: Dyspnea, Cough, Pleuritic Chest Pain Cardiovascular: Yes: Palpitations. No: Chest Pain, Orthopnea, Light Headedness Gastrointestinal: No: Nausea, Vomiting, Abdominal Pain Musculoskeletal: No: Extremity Pain Neurological: Yes: Weakness Physical Examination Vital Signs: Vital Signs Temperature 99.1 F 11/11/16 14:46 Pulse Rate 95 H 11/11/16 18:58 Respiratory Rate 20 11/11/16 18:58 Blood Pressure 116/84 11/11/16 18:58 O2 Sat by Pulse Oximetry (%) 58 11/11/16 11:00 Constitutional: Yes: Well Nourished, Anxious (mildly) Eyes: Yes: Conjunctiva Clear, EOM Intact, PERRL. No: Sclera Icterus HENT: Yes: Atraumatic, Normocephalic Neck: Yes: Supple. No: Lymphadenopathy, Rigid, Thyromegaly (no masses or nodules. no cervical or supraclavicular adenopathy) Cardiovascular: Yes: Regular Rate and Rhythm, S1, S2. No: JVD Respiratory: Yes: Regular, CTA Bilaterally Gastrointestinal: Yes: Normal Bowel Sounds, Soft. No: Tenderness, Rebound Renal/: No: CVA Tenderness - Left, CVA Tenderness - Right Musculoskeletal: No: Joint Stiffness, Joint Swelling, Muscle Pain, Muscle Weakness (5/5 strenght b/l) Extremities: No: Deformity Neurological: Yes: Alert, Oriented, Cran Nerves II-XII Intact. No: Facial Droop , Lethargy, Loss of Sensation, Numbness Psychiatric: Yes: Alert, Oriented Labs: CBC, BMP 11/11/16 07:30 Hospitalist Encounter Assessment: Transient tachycardia -likely associated with anxiety about hospitalization -now resolved -no symptoms pointing to acs -todays BMP no electrolyte abnormality -EKG ordered shows regular sinus rythm 58 bpm, normal axis, no st changes, no comparison available -thyroid exam unremarkable ad no history consistent with thyroid disease but will add TFTs for tomorrow AM -reassured patient Outcome: symptoms resolved Visit type - Emergency Visit Emergency Visit: Yes ED Registration Date: 11/07/16 Care time: The patient presented to the Emergency Department on the above date and was hospitalized for further evaluation of their emergent condition. - New Patient This patient is new to me today: Yes Date on this admission: 11/11/16 - Critical Care Critical Care patient: No
[2016-11-11 22:09] LABS: TROPONIN I < 0.02 ng/ml (0.00-0.05)
[2016-11-12] MEDS: SODIUM CHLORIDE 0.45% 1,000 ML IV SCH (01:48)
[2016-11-12 09:07] LABS: ALBUMIN 3.6 g/dl (3.4-5.0); ALK PHOS 45 U/L (45-117); ANION GAP 8 (8-16); BILIRUBIN,TOTAL 0.8 mg/dL (0.2-1.0); CALCIUM 9.1 mg/dL (8.5-10.1); CO2 30 mmol/L (21-32); COCKROFT - GAULT 78.32; CREATININE 1.3 mg/dL (0.7-1.3); GLUCOSE,RANDOM 86 mg/dL (74-106); SGOT/AST 15 U/L (15-37); SGPT/ALT 19 U/L (12-78); THYROID STIMULATING HORMONE 0.51 uIU/ml (0.358-3.74); TOT PROT 7.3 g/dl (6.4-8.2)
--- NOTE | 2016-11-12 12:11 | PN ---
Progress Note, Physician History of Present Illness: Pt seen and examined at bedside. He is awake and alert. He denies shortness of breath. He complained of discomfort on urination. - Current Medication List Current Medications: Active Medications Acetaminophen (Tylenol -) 650 mg PO Q6H PRN PRN Reason: FEVER OR PAIN Sodium Chloride (1/2 Normal Saline) 1,000 mls @ 100 mls/hr IV ASDIR MONSERRAT Last Admin: 11/12/16 01:48 Dose: 100 mls/hr - Objective Vital Signs: Vital Signs Temperature 98.9 F 11/12/16 11:13 Pulse Rate 80 11/12/16 11:13 Respiratory Rate 18 11/12/16 11:13 Blood Pressure 131/68 11/12/16 11:13 O2 Sat by Pulse Oximetry (%) 98 11/11/16 21:00 Constitutional: Yes: Anxious Eyes: Yes: Conjunctiva Clear HENT: Yes: Atraumatic Neck: Yes: Supple Cardiovascular: Yes: S1, S2 Respiratory: Yes: CTA Bilaterally Gastrointestinal: Yes: Soft Genitourinary: Yes: WNL. No: Urethral Discharge Musculoskeletal: Yes: WNL Extremities: Yes: WNL Edema: No Integumentary: Yes: Tattoos Neurological: Yes: Oriented Psychiatric: Yes: Oriented Labs: CBC, BMP 11/12/16 07:04 Problem List - Problems (1) Back pain Code(s): M54.9 - DORSALGIA, UNSPECIFIED (2) MAURI (acute kidney injury) Code(s): N17.9 - ACUTE KIDNEY FAILURE, UNSPECIFIED Assessment/Plan Current Medications Generic Name Dose Route Start Last Admin Trade Name Karen PRN Reason Stop Dose Admin Acetaminophen 650 mg 11/07/16 17:46 Tylenol - PO Q6H PRN FEVER OR PAIN Sodium Chloride 1,000 mls @ 100 mls/hr 11/08/16 16:00 11/12/16 01:48 1/2 Normal Saline IV 100 mls/hr ASDIR MONSERRAT Administration Impression 1. MAURI 2. back pain 3. UTI Plan - renal function has normalized - cont with fluids while here - I can see him as outpt - genital exam is not remarkable - check HIV if he agrees Dr Freedman
[2016-11-12] MEDS ORDERED: SODIUM CHLORIDE 0.45% 1,000 ML IV SCH (12:12)
[2016-11-12 12:26] LABS: URINE APPEARANCE CLEAR; URINE BILIRUBIN NEGATIVE (NEGATIVE); URINE BLOOD NEGATIVE (NEGATIVE); URINE COLOR COLORLESS; URINE GLUCOSE (UA) NEGATIVE (NEGATIVE); URINE KETONE NEGATIVE (NEGATIVE); URINE LEUK ESTERASE NEGATIVE (NEGATIVE); URINE NITRITE NEGATIVE (NEGATIVE); URINE PROTEIN NEGATIVE (NEGATIVE); URINE UROBILINOGEN NEGATIVE E.U./dl (0.2-1.0)
[2016-11-12 18:19] VITALS: BP 123/76; PULSE 59; TEMP 98.4
--- NOTE | 2016-11-12 18:44 | DS ---
Physical Examination Vital Signs: Vital Signs Temperature 98.4 F 11/12/16 18:00 Pulse Rate 59 L 11/12/16 18:00 Respiratory Rate 20 11/12/16 18:00 Blood Pressure 123/76 11/12/16 18:00 O2 Sat by Pulse Oximetry (%) 98 11/12/16 09:00 Constitutional: Yes: Well Nourished Eyes: Yes: WNL HENT: Yes: WNL Neck: Yes: WNL Cardiovascular: Yes: WNL Respiratory: Yes: WNL Gastrointestinal: Yes: WNL ...Rectal Exam: Yes: WNL Musculoskeletal: Yes: WNL Extremities: Yes: WNL Edema: No Integumentary: Yes: WNL Wound/Incision: Yes: Clean/Dry Neurological: Yes: WNL ...Motor Strength: WNL Psychiatric: Yes: WNL Labs: CBC, BMP 11/12/16 07:04 Discharge Summary Reason For Visit: ACUTE RENAL INSUFFICIENCY Current Active Problems MAURI (acute kidney injury) (Acute) Back pain (Acute) Proteinuria (Acute) UTI (urinary tract infection) (Acute) Procedures: Principal: LABS/CX/SONO Hospital Course: WORKED UP BY RENAL AND SEEN BY , NO ACUTE ABNORMALITY CAN GO TO [facility] FOR OUT PATIENT CARE MONDAY Condition: Fair - Instructions Diet, Activity, Other Instructions: pt should go to [facility] clinic should follow up dr freedman Referrals: Shaye Freedman MD [Staff Physician] - Disposition: HOME - Home Medications Comprehensive Discharge Medication List: Ambulatory Orders Ranitidine [Zantac -] 150 mg PO BID #60 tablet 09/14/16 Pantoprazole Sodium [Protonix] 40 mg PO DAILY #30 tablet. 09/15/16 Acetaminophen [Tylenol .Regular Strength -] 650 mg PO Q6H PRN #0 tablet
--- NOTE | 2016-11-12 18:44 | PN ---
Progress Note, Physician History of Present Illness: no new issues stable - Current Medication List Current Medications: Active Medications Acetaminophen (Tylenol -) 650 mg PO Q6H PRN PRN Reason: FEVER OR PAIN Last Admin: 11/12/16 12:15 Dose: 650 mg Sodium Chloride (1/2 Normal Saline) 1,000 mls @ 65 mls/hr IV ASDIR MONSERRAT Last Admin: 11/12/16 12:32 Dose: 65 mls/hr - Objective Vital Signs: Vital Signs Temperature 98.4 F 11/12/16 18:00 Pulse Rate 59 L 11/12/16 18:00 Respiratory Rate 20 11/12/16 18:00 Blood Pressure 123/76 11/12/16 18:00 O2 Sat by Pulse Oximetry (%) 98 11/12/16 09:00 Constitutional: Yes: No Distress, Calm Cardiovascular: Yes: Regular Rate and Rhythm Respiratory: Yes: Regular, CTA Bilaterally Gastrointestinal: Yes: Normal Bowel Sounds, Soft Musculoskeletal: Yes: WNL Extremities: Yes: WNL Neurological: Yes: Alert, Oriented Psychiatric: Yes: Alert, Oriented Labs: CBC, BMP 11/12/16 07:04 Assessment/Plan 1. MAURI 2. back pain 3. UTI urine cx negative plan all results negative so far continue current mgmt can follow up with others as outpatient
--- NOTE | 2016-11-14 13:02 | EKG ---
Test Reason : Blood Pressure : / mmHG Vent. Rate : 058 BPM Atrial Rate : 058 BPM P-R Int : 172 ms QRS Dur : 084 ms QT Int : 390 ms P-R-T Axes : 076 071 043 degrees QTc Int : 382 ms SINUS BRADYCARDIA POSSIBLE LEFT ATRIAL ENLARGEMENT BORDERLINE ECG WHEN COMPARED WITH ECG OF 09-OCT-2016 14:01, PREMATURE VENTRICULAR COMPLEXES ARE NO LONGER PRESENT VENT. RATE HAS DECREASED BY 41 BPM T WAVE VARIATION Confirmed by BRIA MENDEZ, FABIANO ([id number]) on 11/14/2016 1:01:24 PM Referred By: Confirmed By:FABIANO FRASER MD
== END 2016-11-12 19:26 | disposition home or self-care (01) | DRG 460 ==
LOC: JER 06:38 → JERBED 11:52 → J5S 16:12
PROVIDERS: ADMIT Internal Medicine; ATTEND Internal Medicine
DX: N17.9 Acute kidney failure, unspecified (principal); N39.0 Urinary tract infection, site not specified; M54.9 Dorsalgia, unspecified; F41.9 Anxiety disorder, unspecified; R00.0 Tachycardia, unspecified; Z87.891 Personal history of nicotine dependence
CPT/HCPCS: 36415; 71020-TC; 76775-TC; 80048; 80053; 81003; 81015; 82164; 82436; 82550; 82570; 83520; 84133; 84155; 84156; 84165; 84300; 84439; 84443; 84484; 85025; 86038; 86160; 86225; 86256; 86704; 86706; 86708; 86803; 87086; 87205; 87340; 93005; 93010; 99285-25

== ENCOUNTER 2016-11-18 20:20 | Emergency (ER) | payer SELFPAY ==
[2016-11-18 20:44] VITALS: BP 110/60; PULSE 98; TEMP 98.1; BMI 22.2
[2016-11-18 22:31] LABS: URINE APPEARANCE CLEAR; URINE BILIRUBIN NEGATIVE (NEGATIVE); URINE BLOOD NEGATIVE (NEGATIVE); URINE COLOR STRAW; URINE GLUCOSE (UA) NEGATIVE (NEGATIVE); URINE KETONE NEGATIVE (NEGATIVE); URINE LEUK ESTERASE NEGATIVE (NEGATIVE); URINE NITRITE NEGATIVE (NEGATIVE); URINE PROTEIN NEGATIVE (NEGATIVE); URINE UROBILINOGEN NEGATIVE E.U./dl (0.2-1.0)
--- NOTE | 2016-11-18 22:52 | PDOC ---
History of Present Illness - General Chief Complaint: Urinary Problem Stated Complaint: URINARY PROBLEM Time Seen by Provider: 11/18/16 21:15 History Source: Patient Exam Limitations: No Limitations - History of Present Illness Travel History: No Initial Comments: 11/18/16 22:48 25yo Male patient w/ PmHx: ARF, UTI presents to ED c/o Dysuria. Patient states he was recently admitted last week for ARF (2.9 creat). Patient states he was seen by Registered Art Therapist and told to follow up in office. He states he did, and had labs done, but they did not call him with the results, so he came to ED. Patient denies back pain, abd pain, n/v/d, diff breathing, cough, congestion, fever, or any other complaints at this time. Past History - Travel Traveled outside of the country in the last 30 days: No Close contact w/someone who was outside of country & ill: No - Past Medical History Allergies/Adverse Reactions: Allergies Allergy/AdvReac Type Severity Reaction Status Date / Time No Known Allergies Allergy Verified 11/18/16 20:44 Home Medications: Ambulatory Orders Ranitidine [Zantac -] 150 mg PO BID #60 tablet 09/14/16 Pantoprazole Sodium [Protonix] 40 mg PO DAILY #30 tablet. 09/15/16 Acetaminophen [Tylenol .Regular Strength -] 650 mg PO Q6H PRN #0 tablet Anemia: No Asthma: No Cancer: No Cardiac Disorders: No CVA: No COPD: No CHF: No Dementia: No Diabetes: No GI Disorders: Yes (acute kidney failure) Disorders: No HTN: No Hypercholesterolemia: No Liver Disease: No Seizures: No Thyroid Disease: No - Surgical History Abdominal Surgery: No Appendectomy: No Cardiac Surgery: No Cholecystectomy: No Lung Surgery: No Neurologic Surgery: No Orthopedic Surgery: No - Psycho/Social/Smoking Cessation Hx Anxiety: No Suicidal Ideation: No Smoking History: Former smoker Have you smoked in the past 12 months: No Number of Cigarettes Smoked Daily: 4 If you are a former smoker, when did you quit?: 08/2016 Cigars Per Day: 0 Information on smoking cessation initiated: No 'Breaking Loose' booklet given: 11/07/16 Hx Alcohol Use: No Drug/Substance Use Hx: No Substance Use Type: None Hx Substance Use Treatment: No Review of Systems - Review of Systems Able to Perform ROS?: Yes Is the patient limited Divehi proficient: No Constitutional: No: Chills, Diaphoresis, Fever Respiratory: No: Shortness of Breath, Stridor, Wheezing Cardiac (ROS): No: Chest Pain, Lightheadedness, Palpitations, Syncope, Chest Tightness ABD/GI: No: Constipated, Diarrhea, Nausea, Poor Appetite, Poor Fluid Intake, Rectal Bleeding, Vomiting : Yes: Dysuria. No: Burning, Frequency, Flank Pain, Hematuria, Urgency, Testicular Pain Musculoskeletal: No: Back Pain Integumentary: No: Bruising, Erythema, Pruritus, Rash, Sweating Neurological: No: Headache, Seizure, Tingling, Ataxia, Dizziness All Other Systems: Reviewed and Negative *Physical Exam - Vital Signs Last Vital Signs Temp Pulse Resp BP Pulse Ox 98.1 F 98 H 20 110/60 100 11/18/16 20:41 11/18/16 20:41 11/18/16 20:41 11/18/16 20:41 11/18/16 20:41 - Physical Exam General Appearance: Yes: Nourished, Appropriately Dressed. No: Apparent Distress, Mild Distress, Moderate Distress, Severe Distress Neck: positive: Trachea midline, Supple. negative: Lymphadenopathy (R), Lymphadenopathy (L) Respiratory/Chest: positive: Lungs Clear, Normal Breath Sounds. negative: Chest Tender, Respiratory Distress, Accessory Muscle Use, Labored Respiration, Rhonchi, Stridor, Wheezing Cardiovascular: positive: Regular Rhythm, Regular Rate Gastrointestinal/Abdominal: positive: Normal Bowel Sounds, Soft. negative: Distended, Guarding, Rebound, Tenderness Musculoskeletal: positive: Normal Inspection. negative: CVA Tenderness Extremity: positive: Normal Capillary Refill, Normal Inspection, Normal Range of Motion. negative: Pedal Edema, Swelling, Calf Tenderness, Erythema, Inflammation Integumentary: positive: Normal Color, Dry, Warm Neurologic: positive: behavioral health worker II-XII NML intact, Fully Oriented, Alert, Normal Mood/ Affect, Normal Response, Motor Strength 5/5 ED Treatment Course - LABORATORY CBC & Chemistry Diagram: 11/18/16 22:19 11/18/16 22:19 - ADDITIONAL ORDERS Additional order review: Laboratory Results 11/18/16 22:05 Urine Color Straw Urine Appearance Clear Urine pH 6.0 Urine Protein Negative Urine Glucose (UA) Negative Urine Ketones Negative Urine Blood Negative Urine Nitrite Negative Urine Bilirubin Negative Urine Urobilinogen Negative Ur Leukocyte Esterase Negative *DC/Admit/Observation/Transfer Diagnosis at time of Disposition: Dysuria, Anxiety about health - Discharge Dispostion Disposition: HOME Condition at time of disposition: Stable Admit: No - Patient Instructions Printed Discharge Instructions: DI for Dysuria -- Adult Additional Instructions: FOLLOW UP WITH YOUR DOCTOR SCHEDULED. RETURN IF ANY CONCERNS OR WORSENING OF SYMPTOMS. Print Language: CHILEAN
[2016-11-18 22:58] LABS: BASOPHIL 0.7 % (0-2.0); EOSINOPHIL 2.3 % (0-4.5); MCH 27.6 pg (25.7-33.7); MCHC 32.7 g/dl (32.0-35.9); MEAN CELL VOLUME 84.2 fl (80-96); MEAN PLT VOLUME 8.1 fl (7.5-11.1); NEUTROPHILS 53.4 % (42.8-82.8); PLATELET COUNT 294 K/MM3 (134-434); RDW 12.7 % (11.9-15.9); WHITE BLOOD COUNT 5.5 K/mm3 (4.0-10.0)
[2016-11-18 23:16] LABS: ALBUMIN 4.2 g/dl (3.4-5.0); ANION GAP 12 (8-16); BILIRUBIN,TOTAL 0.4 mg/dL (0.2-1.0); CO2 29 mmol/L (21-32); COCKROFT - GAULT 76.66; CREATININE 1.3 mg/dL (0.7-1.3); GLUCOSE,RANDOM 89 mg/dL (74-106); SGOT/AST 14 U/L (15-37); SGPT/ALT 23 U/L (12-78)
[2016-11-18 23:17] LABS: ALK PHOS 50 U/L (45-117)
== END 2016-11-18 23:55 | disposition home or self-care (01) ==
LOC: JER 20:20 → SUPCPDRO 20:20 → JER 23:55
DX: N17.9 Acute kidney failure, unspecified (principal); F06.4 Anxiety disorder due to known physiological condition
CPT/HCPCS: 36415; 80053; 81003; 85025; 99281-25